=== PATIENT | male | born 1955 | race Caucasian/White ===

== ENCOUNTER 2020-11-19 13:37 | Inpatient (IN) | payer OTHER ==
[~2020-11-19] VITALS: Ht 190.5 cm; Wt 165.0 kg
[2020-11-19 15:51] LABS: COVID AG,FIA SOURCE NASOPHARYNGEAL
[2020-11-19 15:53] LABS: BASOPHILS % (AUTO) 0.6 % (0.0-2.0); EOSINOPHILS % (AUTO) 2.4 % (1.0-6.0); HEMATOCRIT 38.6 % (41-53); LYMPHOCYTES # (AUTO) 1.6 K/uL (1.0-4.8); LYMPHOCYTES % (AUTO) 19.4 % (22.0-44.0); MEAN CORPUSCULAR HEMOGLOBIN 29.9 pg (26.0-34.0); MEAN CORPUSCULAR HGB CONC 33.7 G/dL (31.0-37.0); MEAN CORPUSCULAR VOLUME 89 fL (80-100); MONOCYTES # (AUTO) 0.6 K/uL (0.1-1.0); MONOCYTES % (AUTO) 7.3 % (2.0-9.0); NEUTROPHILS # (AUTO) 5.9 K/uL (1.8-7.7); NEUTROPHILS % (AUTO) 70.3 % (40.0-70.0); PLATELET COUNT (AUTO) 191 K/uL (150-450); RED BLOOD CELL COUNT(AUTO) 4.36 MIL/uL (4.50-5.90); RED CELL DISTRIBUTION WIDTH 13.8 % (11.5-14.5)
[2020-11-19 16:02] LABS: ANION GAP 8 mmol/L (8-16); CALCIUM, TOTAL 8.9 mg/dL (8.8-10.5); CARBON DIOXIDE 29 mmol/L (22-29); CHLORIDE 106 mmol/L (98-107); CREATININE 0.96 mg/dL (0.60-1.30); GLOMERULAR FILTR. RATE CALC > 60 mL/min (>60); GLUCOSE,RANDOM 107 mg/dL (70-110); POTASSIUM 4.1 mmol/L (3.5-5.1); SODIUM SERUM 143 mmol/L (136-145); UREA NITROGEN, BLOOD 19 mg/dL (7-18)
[2020-11-19 16:07] LABS: ALANINE AMINOTRANSFERASE 30 U/L (12-78); ALBUMIN 4.1 g/dL (3.4-5.0); ALKALINE PHOSPHATASE 61 U/L (46-116); ASPARTATE AMINOTRANSFERASE 22 U/L (15-37); BILIRUBIN,TOTAL 0.4 mg/dL (0.1-1.0); TOTAL PROTEIN, SERUM 7.1 g/dL (6.4-8.2)
[2020-11-19] MEDS ORDERED: ONDANSETRON HCL 4 MG/2 ML VIAL IVP PRN ×2 (18:45→19:30)
[2020-11-19] MEDS ORDERED: ACETAMINOPHEN 325 MG TABLET PO PRN (18:45)
[2020-11-19 20:03] LABS: GLUCOSE,POINT OF CARE 93 MG/DL (70-110)
[2020-11-19 20:15] VITALS: BP 150/82
[2020-11-19] MEDS ORDERED: PNEUMOCOCCAL VACCINE POLYVALENT 0.5 ML VIAL [PPSV23] IM. ONE (21:15)
[2020-11-19] MEDS ORDERED: SODIUM CHLORIDE 0.9% 250 ML IV ONE (22:34)
[2020-11-19] MEDS: FUROSEMIDE 20 MG TABLET PO SCH (22:40)
[2020-11-19] MEDS: CeFAZolin 1 GM/DEXTROSE 50 ML IV SCH (22:50)
[2020-11-19] MEDS: HEPARIN SODIUM,PORCINE 5,000 UNITS/ML VIAL SQ SCH (22:51)
[2020-11-20 04:39] VITALS: BP 158/78
[2020-11-20] MEDS: CeFAZolin 1 GM/DEXTROSE 50 ML IV SCH ×2 (05:48→13:31)
[2020-11-20 06:33] LABS: GLUCOMETER DEV NAME(LOC) 6N.1; GLUCOSE,POINT OF CARE 91 MG/DL (70-110)
[2020-11-20] MEDS: HEPARIN SODIUM,PORCINE 5,000 UNITS/ML VIAL SQ SCH ×3 (08:00→23:30)
[2020-11-20] MEDS: FUROSEMIDE 20 MG TABLET PO SCH (08:00)
[2020-11-20 08:04] VITALS: BP 148/57
[2020-11-20 08:36] LABS: BASOPHILS % (AUTO) 1.1 % (0.0-2.0); EOSINOPHILS % (AUTO) 2.3 % (1.0-6.0); HEMATOCRIT 39.3 % (41-53); HEMOGLOBIN 13.4 g/dL (13.5-17.5); LYMPHOCYTES # (AUTO) 1.4 K/uL (1.0-4.8); LYMPHOCYTES % (AUTO) 23.6 % (22.0-44.0); MEAN CORPUSCULAR HEMOGLOBIN 30.1 pg (26.0-34.0); MEAN CORPUSCULAR HGB CONC 34.1 G/dL (31.0-37.0); MEAN CORPUSCULAR VOLUME 88 fL (80-100); MONOCYTES # (AUTO) 0.4 K/uL (0.1-1.0); MONOCYTES % (AUTO) 6.1 % (2.0-9.0); NEUTROPHILS # (AUTO) 4.1 K/uL (1.8-7.7); NEUTROPHILS % (AUTO) 66.9 % (40.0-70.0); PLATELET COUNT (AUTO) 167 K/uL (150-450); RED BLOOD CELL COUNT(AUTO) 4.46 MIL/uL (4.50-5.90); RED CELL DISTRIBUTION WIDTH 13.7 % (11.5-14.5)
[2020-11-20 08:52] LABS: ANION GAP 5 mmol/L (8-16); CALCIUM, TOTAL 8.9 mg/dL (8.8-10.5); CARBON DIOXIDE 29 mmol/L (22-29); CHLORIDE 107 mmol/L (98-107); CREATININE 0.89 mg/dL (0.60-1.30); GLOMERULAR FILTR. RATE CALC > 60 mL/min (>60); GLUCOSE,RANDOM 116 mg/dL (70-110); POTASSIUM 4.2 mmol/L (3.5-5.1); SODIUM SERUM 141 mmol/L (136-145); UREA NITROGEN, BLOOD 15 mg/dL (7-18)
[2020-11-20] MEDS: ACETAMINOPHEN 325 MG TABLET PO PRN ×2 (10:40→18:39)
[2020-11-20] MEDS ORDERED: THIAMINE 100 MG TABLET PO ONE (11:15)
[2020-11-20 12:35] LABS: GLUCOMETER DEV NAME(LOC) 6N.1; GLUCOSE,POINT OF CARE 89 MG/DL (70-110)
[2020-11-20] MEDS: CLINDAMYCIN 600 MG/D5% WATER 50 ML IV SCH ×2 (16:20→23:27)
[2020-11-20 19:50] VITALS: BP 146/78
[2020-11-20 22:59] LABS: GLUCOMETER DEV NAME(LOC) 6S.1; GLUCOSE,POINT OF CARE 132 MG/DL (70-110)
[2020-11-20 23:40] VITALS: BP 123/66
[2020-11-21] MEDS: ACETAMINOPHEN 325 MG TABLET PO PRN ×3 (00:44→13:48)
[2020-11-21 04:50] VITALS: BP 134/82
[2020-11-21 06:25] LABS: BASOPHILS % (AUTO) 0.7 % (0.0-2.0); EOSINOPHILS % (AUTO) 2.2 % (1.0-6.0); HEMATOCRIT 39.8 % (41-53); HEMOGLOBIN 13.5 g/dL (13.5-17.5); LYMPHOCYTES # (AUTO) 1.4 K/uL (1.0-4.8); LYMPHOCYTES % (AUTO) 21.4 % (22.0-44.0); MEAN CORPUSCULAR HEMOGLOBIN 29.9 pg (26.0-34.0); MEAN CORPUSCULAR HGB CONC 33.8 G/dL (31.0-37.0); MEAN CORPUSCULAR VOLUME 89 fL (80-100); MONOCYTES # (AUTO) 0.4 K/uL (0.1-1.0); MONOCYTES % (AUTO) 6.7 % (2.0-9.0); NEUTROPHILS # (AUTO) 4.5 K/uL (1.8-7.7); PLATELET COUNT (AUTO) 163 K/uL (150-450); RED BLOOD CELL COUNT(AUTO) 4.49 MIL/uL (4.50-5.90); RED CELL DISTRIBUTION WIDTH 13.9 % (11.5-14.5)
[2020-11-21 06:41] LABS: ALANINE AMINOTRANSFERASE 30 U/L (12-78); ALBUMIN 3.9 g/dL (3.4-5.0); ALKALINE PHOSPHATASE 60 U/L (46-116); ANION GAP 4 mmol/L (8-16); ASPARTATE AMINOTRANSFERASE 23 U/L (15-37); BILIRUBIN,TOTAL 0.5 mg/dL (0.1-1.0); CALCIUM, TOTAL 9.2 mg/dL (8.8-10.5); CARBON DIOXIDE 32 mmol/L (22-29); CHLORIDE 105 mmol/L (98-107); CREATININE 0.99 mg/dL (0.60-1.30); GLOMERULAR FILTR. RATE CALC > 60 mL/min (>60); GLUCOSE,RANDOM 96 mg/dL (70-110); POTASSIUM 4.8 mmol/L (3.5-5.1); SODIUM SERUM 141 mmol/L (136-145); TOTAL PROTEIN, SERUM 7.1 g/dL (6.4-8.2); UREA NITROGEN, BLOOD 15 mg/dL (7-18)
[2020-11-21 08:01] VITALS: BP 153/88
[2020-11-21] MEDS: CLINDAMYCIN 600 MG/D5% WATER 50 ML IV SCH (08:45)
[2020-11-21] MEDS: HEPARIN SODIUM,PORCINE 5,000 UNITS/ML VIAL SQ SCH ×3 (08:45→23:47)
[2020-11-21] MEDS: FUROSEMIDE 20 MG TABLET PO SCH (08:45)
[2020-11-21 12:43] LABS: GLUCOMETER DEV NAME(LOC) 6N.1; GLUCOSE,POINT OF CARE 105 MG/DL (70-110)
[2020-11-21 15:06] VITALS: BP 145/77
[2020-11-21] MEDS: CLINDAMYCIN 900 MG/D5% WATER 50 ML IV SCH ×2 (15:59→23:47)
[2020-11-21 20:17] VITALS: BP 139/87
[2020-11-21 23:03] LABS: GLUCOMETER DEV NAME(LOC) 6S.1; GLUCOSE,POINT OF CARE 139 MG/DL (70-110)
[2020-11-21 23:36] VITALS: BP 145/72
[2020-11-22 03:31] VITALS: BP 134/87
[2020-11-22 07:04] LABS: GLUCOMETER DEV NAME(LOC) 6N.1; GLUCOSE,POINT OF CARE 107 MG/DL (70-110)
[2020-11-22 07:58] VITALS: BP 134/82
[2020-11-22] MEDS: FUROSEMIDE 20 MG TABLET PO SCH (08:01)
[2020-11-22] MEDS: HEPARIN SODIUM,PORCINE 5,000 UNITS/ML VIAL SQ SCH ×3 (08:01→23:26)
[2020-11-22] MEDS: CLINDAMYCIN 900 MG/D5% WATER 50 ML IV SCH ×3 (08:02→23:26)
[2020-11-22] MEDS ORDERED: SODIUM CHLORIDE 0.9% 500 ML IV ONE (08:22)
[2020-11-22] MEDS: ACETAMINOPHEN 325 MG TABLET PO PRN ×3 (08:58→21:51)
[2020-11-22 19:53] VITALS: BP 128/71
[2020-11-23 04:40] VITALS: BP 118/75
[2020-11-23 06:56] LABS: ALANINE AMINOTRANSFERASE 51 U/L (12-78); ALBUMIN 4.2 g/dL (3.4-5.0); ALKALINE PHOSPHATASE 65 U/L (46-116); ANION GAP 7 mmol/L (8-16); ASPARTATE AMINOTRANSFERASE 40 U/L (15-37); BILIRUBIN,TOTAL 0.6 mg/dL (0.1-1.0); CALCIUM, TOTAL 9.2 mg/dL (8.8-10.5); CARBON DIOXIDE 27 mmol/L (22-29); CHLORIDE 103 mmol/L (98-107); CREATININE 0.74 mg/dL (0.60-1.30); GLOMERULAR FILTR. RATE CALC > 60 mL/min (>60); GLUCOSE,RANDOM 104 mg/dL (70-110); POTASSIUM 4.5 mmol/L (3.5-5.1); SODIUM SERUM 137 mmol/L (136-145); TOTAL PROTEIN, SERUM 7.6 g/dL (6.4-8.2); UREA NITROGEN, BLOOD 19 mg/dL (7-18)
[2020-11-23 06:58] LABS: BASOPHILS % (AUTO) 0.4 % (0.0-2.0); EOSINOPHILS % (AUTO) 1.7 % (1.0-6.0); HEMATOCRIT 44.2 % (41-53); HEMOGLOBIN 15.1 g/dL (13.5-17.5); LYMPHOCYTES # (AUTO) 1.5 K/uL (1.0-4.8); LYMPHOCYTES % (AUTO) 18.2 % (22.0-44.0); MEAN CORPUSCULAR HEMOGLOBIN 30.1 pg (26.0-34.0); MEAN CORPUSCULAR HGB CONC 34.1 G/dL (31.0-37.0); MEAN CORPUSCULAR VOLUME 88 fL (80-100); MONOCYTES # (AUTO) 0.7 K/uL (0.1-1.0); MONOCYTES % (AUTO) 8.2 % (2.0-9.0); NEUTROPHILS # (AUTO) 5.9 K/uL (1.8-7.7); NEUTROPHILS % (AUTO) 71.5 % (40.0-70.0); PLATELET COUNT (AUTO) 192 K/uL (150-450); RED BLOOD CELL COUNT(AUTO) 5.01 MIL/uL (4.50-5.90); RED CELL DISTRIBUTION WIDTH 14.1 % (11.5-14.5)
[2020-11-23 07:24] VITALS: BP 142/83
[2020-11-23] MEDS: CLINDAMYCIN 900 MG/D5% WATER 50 ML IV SCH ×3 (07:41→23:51)
[2020-11-23] MEDS: HEPARIN SODIUM,PORCINE 5,000 UNITS/ML VIAL SQ SCH ×3 (07:41→23:57)
[2020-11-23] MEDS: FUROSEMIDE 20 MG TABLET PO SCH (08:37)
[2020-11-23] MEDS: ACETAMINOPHEN 325 MG TABLET PO PRN ×3 (10:37→22:21)
[2020-11-23 11:45] VITALS: BP 110/68
[2020-11-23] MEDS ORDERED: SODIUM CHLORIDE 0.9% 250 ML IV ONE (16:19)
[2020-11-23 20:20] VITALS: BP 126/79
[2020-11-24] MEDS: ACETAMINOPHEN 325 MG TABLET PO PRN ×5 (02:14→23:16)
[2020-11-24 05:20] VITALS: BP 127/86
[2020-11-24] MEDS: HEPARIN SODIUM,PORCINE 5,000 UNITS/ML VIAL SQ SCH ×3 (07:16→23:11)
[2020-11-24] MEDS: CLINDAMYCIN 900 MG/D5% WATER 50 ML IV SCH ×3 (07:16→23:11)
[2020-11-24 07:29] VITALS: BP 135/88
[2020-11-24] MEDS: MULTIVITAMINS WITH MINERALS, THERAPEUTIC TABLET PO SCH (08:35)
[2020-11-24] MEDS: FUROSEMIDE 20 MG TABLET PO SCH (08:36)
[2020-11-24 19:38] VITALS: BP 103/80
[2020-11-25 04:49] VITALS: BP 116/67
[2020-11-25 06:02] LABS: BASOPHILS % (AUTO) 0.8 % (0.0-2.0); EOSINOPHILS % (AUTO) 1.6 % (1.0-6.0); HEMATOCRIT 44.3 % (41-53); HEMOGLOBIN 15.2 g/dL (13.5-17.5); LYMPHOCYTES # (AUTO) 1.5 K/uL (1.0-4.8); LYMPHOCYTES % (AUTO) 19.6 % (22.0-44.0); MEAN CORPUSCULAR HGB CONC 34.2 G/dL (31.0-37.0); MEAN CORPUSCULAR VOLUME 88 fL (80-100); MONOCYTES # (AUTO) 0.6 K/uL (0.1-1.0); MONOCYTES % (AUTO) 7.7 % (2.0-9.0); NEUTROPHILS # (AUTO) 5.3 K/uL (1.8-7.7); NEUTROPHILS % (AUTO) 70.3 % (40.0-70.0); PLATELET COUNT (AUTO) 200 K/uL (150-450); RED BLOOD CELL COUNT(AUTO) 5.05 MIL/uL (4.50-5.90); RED CELL DISTRIBUTION WIDTH 13.8 % (11.5-14.5)
[2020-11-25] MEDS: ACETAMINOPHEN 325 MG TABLET PO PRN ×3 (06:02→16:53)
[2020-11-25 06:32] LABS: ALANINE AMINOTRANSFERASE 65 U/L (12-78); ALBUMIN 3.9 g/dL (3.4-5.0); ALKALINE PHOSPHATASE 68 U/L (46-116); ANION GAP 5 mmol/L (8-16); ASPARTATE AMINOTRANSFERASE 42 U/L (15-37); BILIRUBIN,TOTAL 0.5 mg/dL (0.1-1.0); CARBON DIOXIDE 29 mmol/L (22-29); CHLORIDE 102 mmol/L (98-107); CREATININE 0.81 mg/dL (0.60-1.30); GLOMERULAR FILTR. RATE CALC > 60 mL/min (>60); GLUCOSE,RANDOM 104 mg/dL (70-110); POTASSIUM 4.4 mmol/L (3.5-5.1); SODIUM SERUM 136 mmol/L (136-145); TOTAL PROTEIN, SERUM 7.9 g/dL (6.4-8.2); UREA NITROGEN, BLOOD 21 mg/dL (7-18)
[2020-11-25 07:57] VITALS: BP 143/81
[2020-11-25] MEDS: MULTIVITAMINS WITH MINERALS, THERAPEUTIC TABLET PO SCH (08:52)
[2020-11-25] MEDS: CLINDAMYCIN 900 MG/D5% WATER 50 ML IV SCH ×2 (08:53→16:52)
[2020-11-25] MEDS: HEPARIN SODIUM,PORCINE 5,000 UNITS/ML VIAL SQ SCH ×2 (08:53→16:52)
[2020-11-25] MEDS: FUROSEMIDE 20 MG TABLET PO SCH (09:08)
[2020-11-25 16:00] VITALS: BP 121/68
== END 2020-11-25 19:09 | DRG 603 ==
LOC: EMS 13:37 → 6S 18:38
PROVIDERS: ADMIT Internal Medicine; ATTEND Internal Medicine
DX: L03.115 Cellulitis of right lower limb (principal); Z68.42 Body mass index [BMI] 45.0-49.9, adult; L03.116 Cellulitis of left lower limb; I87.2 Venous insufficiency (chronic) (peripheral); E11.9 Type 2 diabetes mellitus without complications; E66.01 Morbid (severe) obesity due to excess calories; M19.90 Unspecified osteoarthritis, unspecified site; I10 Essential (primary) hypertension; Z90.49 Acquired absence of other specified parts of digestive tract; Z88.8 Allergy status to other drugs, medicaments and biological substances; Z87.891 Personal history of nicotine dependence; Z79.899 Other long term (current) drug therapy; I87.8 Other specified disorders of veins; Z20.822 Contact with and (suspected) exposure to COVID-19
CPT/HCPCS: 71045; 80048; 80053; 82962; 83735; 83880; 85025; 85379; 93005; 93306; 93970; 99285; J0690; J1644; J3490; J7040; J7050; 36415-L1; 36415-TC

== ENCOUNTER 2021-01-26 23:40 | Inpatient (IN) | payer OTHER ==
[~2021-01-26] VITALS: Ht 190.5 cm; Wt 169.8 kg
[2021-01-27] MEDS ORDERED: LISI-892 PO (00:17)
[2021-01-27] MEDS ORDERED: ASPI81TA39 PO (00:17)
[2021-01-27] MEDS ORDERED: POTA-9 PO (00:17)
[2021-01-27] MEDS ORDERED: AMOX1TAB16 PO (00:17)
[2021-01-27] MEDS ORDERED: BUME0.5T5 PO (00:17)
[2021-01-27] MEDS ORDERED: OMEP20 PO (00:17)
[2021-01-27 00:47] LABS: BASOPHILS % (AUTO) 0.5 % (0.0-2.0); EOSINOPHILS % (AUTO) 1.1 % (1.0-6.0); HEMATOCRIT 42.7 % (41-53); HEMOGLOBIN 14.5 g/dL (13.5-17.5); LYMPHOCYTES # (AUTO) 1.3 K/uL (1.0-4.8); LYMPHOCYTES % (AUTO) 13.9 % (22.0-44.0); MEAN CORPUSCULAR HEMOGLOBIN 29.9 pg (26.0-34.0); MEAN CORPUSCULAR HGB CONC 33.9 G/dL (31.0-37.0); MEAN CORPUSCULAR VOLUME 88 fL (80-100); MONOCYTES # (AUTO) 0.7 K/uL (0.1-1.0); MONOCYTES % (AUTO) 7.8 % (2.0-9.0); NEUTROPHILS # (AUTO) 7.1 K/uL (1.8-7.7); NEUTROPHILS % (AUTO) 76.7 % (40.0-70.0); PLATELET COUNT (AUTO) 180 K/uL (150-450); RED BLOOD CELL COUNT(AUTO) 4.85 MIL/uL (4.50-5.90); RED CELL DISTRIBUTION WIDTH 13.6 % (11.5-14.5)
[2021-01-27] MEDS ORDERED: DILTIAZEM HCL 5 MG/ML 5 ML VIAL IVP ONE (01:00)
[2021-01-27] MEDS ORDERED: DILTIAZEM HCL 125 MG in DEXTROSE 5%-WATER 100 ML IV PRN (01:00)
[2021-01-27 01:01] LABS: ANION GAP 8 mmol/L (8-16); CARBON DIOXIDE 25 mmol/L (22-29); CHLORIDE 104 mmol/L (98-107); CREATININE 1.06 mg/dL (0.60-1.30); GLOMERULAR FILTR. RATE CALC > 60 mL/min (>60); GLUCOSE,RANDOM 134 mg/dL (70-110); POTASSIUM 4.3 mmol/L (3.5-5.1); SODIUM SERUM 137 mmol/L (136-145); UREA NITROGEN, BLOOD 20 mg/dL (7-18)
[2021-01-27 01:02] LABS: PROTHROMBIN TIME 10.9 SEC (9.4-11.6)
[2021-01-27 01:25] LABS: COVID AG,FIA SOURCE NASOPHARYNGEAL
[2021-01-27 01:25] LABS: ALANINE AMINOTRANSFERASE 64 U/L (12-78); ALKALINE PHOSPHATASE 67 U/L (46-116); ASPARTATE AMINOTRANSFERASE 30 U/L (15-37); BILIRUBIN,TOTAL 0.5 mg/dL (0.1-1.0); CREATINE KINASE, TOTAL ONLY 80 U/L (39-308); TOTAL PROTEIN, SERUM 7.7 g/dL (6.4-8.2)
[2021-01-27] MEDS ORDERED: ACETAMINOPHEN 500 MG TABLET PO ONE (01:45)
[2021-01-27] MEDS ORDERED: ACETAMINOPHEN 325 MG TABLET PO PRN (02:00)
[2021-01-27] MEDS ORDERED: ONDANSETRON HCL 4 MG/2 ML VIAL IVP PRN (02:00)
[2021-01-27] MEDS ORDERED: 0.9% SODIUM CHLORIDE 10 ML SYRINGE IVP PRN (02:00)
[2021-01-27] MEDS ORDERED: MIDAZOLAM HCL 2 MG/2 ML VIAL IVP ONE (03:00)
[2021-01-27] MEDS ORDERED: MIDAZOLAM HCL 5 MG/ML VIAL IVP ONE (03:00)
[2021-01-27] MEDS ORDERED: FentaNYL CITRATE PF 100 MCG/2 ML VIAL IVP ONE (03:00)
[2021-01-27] MEDS ORDERED: AMIODARONE HCL 360 MG in DEXTROSE 5%-WATER 242.8 ML IV ONE (04:00)
[2021-01-27] MEDS ORDERED: HEPARIN SODIUM,PORCINE 5,000 UNITS/ML VIAL IVP PRN ×2 (04:00)
[2021-01-27] MEDS ORDERED: HEPARIN SODIUM,PORCINE 5,000 UNITS/ML VIAL IVP ONE (04:00)
[2021-01-27] MEDS ORDERED: AMIODARONE HCL 150 MG in DEXTROSE 5%-WATER 97 ML IV ONE (04:00)
[2021-01-27] MEDS ORDERED: HEPARIN SODIUM 25000 UNITS/D5W 250 ML IV PRN (04:00)
[2021-01-27] MEDS ORDERED: AMIODARONE HCL 540 MG in DEXTROSE 5%-WATER 239.2 ML IV ONE (10:00)
[2021-01-27] MEDS ORDERED: MAGNESIUM HYDROXIDE SUSPENSION 30 ML UDCUP PO PRN (11:00)
[2021-01-27 15:24] LABS: APPEARANCE,URINE CLEAR (CLEAR); BILIRUBIN,URINE NEGATIVE (NEGATIVE); GLUCOSE, URINE (UA) NEGATIVE (NEGATIVE); KETONES,URINE NEGATIVE (NEGATIVE); LEUKOCYTE ESTERASE ,URINE NEGATIVE (NEGATIVE); NITRATE,URINE NEGATIVE (NEGATIVE); OCCULT BLOOD,URINE NEGATIVE (NEGATIVE); PROTEIN,URINE NEGATIVE (NEGATIVE); UROBILINOGEN,URINE 0.2 mg/dL (<=1.0)
[2021-01-27 18:04] VITALS: BP 133/83
[2021-01-27 19:33] VITALS: BP 110/66
[2021-01-27] MEDS: APIXABAN 5 MG TABLET PO SCH (21:08)
[2021-01-27] MEDS: ACETAMINOPHEN 325 MG TABLET PO PRN (21:16)
[2021-01-28] VITALS (7 sets, daily range): BP systolic 100–122; BP diastolic 55–70
[2021-01-28] MEDS ORDERED: AMIODARONE HCL 750 MG in DEXTROSE 5%-WATER 485 ML IV SCH ×2 (04:00)
[2021-01-28 06:33] LABS: BASOPHILS % (AUTO) 0.9 % (0.0-2.0); EOSINOPHILS % (AUTO) 1.3 % (1.0-6.0); HEMATOCRIT 41.7 % (41-53); HEMOGLOBIN 13.9 g/dL (13.5-17.5); LYMPHOCYTES # (AUTO) 1.5 K/uL (1.0-4.8); LYMPHOCYTES % (AUTO) 20.7 % (22.0-44.0); MEAN CORPUSCULAR HEMOGLOBIN 30.1 pg (26.0-34.0); MEAN CORPUSCULAR HGB CONC 33.3 G/dL (31.0-37.0); MEAN CORPUSCULAR VOLUME 90 fL (80-100); MONOCYTES # (AUTO) 0.4 K/uL (0.1-1.0); MONOCYTES % (AUTO) 6.1 % (2.0-9.0); NEUTROPHILS # (AUTO) 5.1 K/uL (1.8-7.7); PLATELET COUNT (AUTO) 178 K/uL (150-450); RED BLOOD CELL COUNT(AUTO) 4.61 MIL/uL (4.50-5.90); RED CELL DISTRIBUTION WIDTH 14.4 % (11.5-14.5)
[2021-01-28] MEDS: FAMOTIDINE 20 MG TABLET PO SCH (08:18)
[2021-01-28] MEDS: APIXABAN 5 MG TABLET PO SCH ×2 (08:18→21:57)
[2021-01-28] MEDS: ACETAMINOPHEN 325 MG TABLET PO PRN ×4 (08:19→22:07)
[2021-01-28] MEDS: AMIODARONE HCL 200 MG TABLET PO SCH (21:57)
[2021-01-29 05:37] VITALS: BP 110/62
[2021-01-29 08:05] VITALS: BP 106/62
[2021-01-29] MEDS: FAMOTIDINE 20 MG TABLET PO SCH (08:42)
[2021-01-29] MEDS: AMIODARONE HCL 200 MG TABLET PO SCH (08:42)
[2021-01-29] MEDS: APIXABAN 5 MG TABLET PO SCH (08:42)
[2021-01-29] MEDS ORDERED: AMIO200T68 PO (12:06)
[2021-01-29] MEDS ORDERED: APIX5TAB PO (12:06)
[2021-01-29] MEDS ORDERED: ACET-2247 PO (12:06)
[2021-01-29] MEDS ORDERED: MOM30 PO (12:07)
[2021-01-29] MEDS ORDERED: AMIODARONE HCL 200 MG TABLET PO SCH (21:00)
== END 2021-01-29 14:30 | DRG 309 ==
LOC: EMS 23:41 → 5S 01-27 10:46
PROVIDERS: ADMIT Internal Medicine; ATTEND Internal Medicine
DX: I48.0 Paroxysmal atrial fibrillation (principal); Z68.42 Body mass index [BMI] 45.0-49.9, adult; I10 Essential (primary) hypertension; Z20.822 Contact with and (suspected) exposure to COVID-19; E66.01 Morbid (severe) obesity due to excess calories; J44.9 Chronic obstructive pulmonary disease, unspecified; G47.33 Obstructive sleep apnea (adult) (pediatric); Z88.8 Allergy status to other drugs, medicaments and biological substances; Z88.6 Allergy status to analgesic agent; Z79.82 Long term (current) use of aspirin; Z79.899 Other long term (current) drug therapy
CPT/HCPCS: 71045; 80053; 81003; 82550; 83880; 84484; 85025; 85610; 85730; 93005; 99291; J0282; J1644; J2250; J3010; J3490; J7060; 36415-L1; 36415-TC

== ENCOUNTER 2021-02-04 14:28 | Inpatient (IN) | payer OTHER ==
[~2021-02-04] VITALS: Ht 190.5 cm; Wt 172.0 kg
[~2021-02-04 14:28] MED LIST: ACET-2247 PO; AMIO200T68 PO; APIX5TAB PO; MOM30 PO; OMEP20 PO
[2021-02-04 17:16] LABS: BASOPHILS % (AUTO) 0.6 % (0.0-2.0); EOSINOPHILS % (AUTO) 1.9 % (1.0-6.0); HEMATOCRIT 36.7 % (41-53); HEMOGLOBIN 12.5 g/dL (13.5-17.5); LYMPHOCYTES # (AUTO) 1.6 K/uL (1.0-4.8); LYMPHOCYTES % (AUTO) 20.4 % (22.0-44.0); MEAN CORPUSCULAR HEMOGLOBIN 29.8 pg (26.0-34.0); MEAN CORPUSCULAR HGB CONC 33.9 G/dL (31.0-37.0); MEAN CORPUSCULAR VOLUME 88 fL (80-100); MONOCYTES # (AUTO) 0.6 K/uL (0.1-1.0); MONOCYTES % (AUTO) 7.3 % (2.0-9.0); NEUTROPHILS # (AUTO) 5.4 K/uL (1.8-7.7); NEUTROPHILS % (AUTO) 69.8 % (40.0-70.0); PLATELET COUNT (AUTO) 173 K/uL (150-450); RED BLOOD CELL COUNT(AUTO) 4.19 MIL/uL (4.50-5.90)
[2021-02-04 17:20] LABS: COVID AG,FIA SOURCE NASOPHARYNGEAL
[2021-02-04 17:30] LABS: ANION GAP 11 mmol/L (8-16); CALCIUM, TOTAL 8.2 mg/dL (8.8-10.5); CARBON DIOXIDE 27 mmol/L (22-29); CHLORIDE 107 mmol/L (98-107); CREATININE 0.82 mg/dL (0.60-1.30); GLOMERULAR FILTR. RATE CALC > 60 mL/min (>60); GLUCOSE,RANDOM 91 mg/dL (70-110); POTASSIUM 3.7 mmol/L (3.5-5.1); SODIUM SERUM 145 mmol/L (136-145); UREA NITROGEN, BLOOD 14 mg/dL (7-18)
[2021-02-04] MEDS ORDERED: VANCOMYCIN HCL 1.5 GM in DEXTROSE 5%-WATER 250 ML IV ONE (17:30)
[2021-02-04 17:36] LABS: ALANINE AMINOTRANSFERASE 42 U/L (12-78); ALBUMIN 3.6 g/dL (3.4-5.0); ALKALINE PHOSPHATASE 60 U/L (46-116); ASPARTATE AMINOTRANSFERASE 20 U/L (15-37); BILIRUBIN,TOTAL 0.3 mg/dL (0.1-1.0); CREATINE KINASE, TOTAL ONLY 73 U/L (39-308); LIPASE 133 U/L (73-393); TOTAL PROTEIN, SERUM 6.9 g/dL (6.4-8.2)
[2021-02-04 17:59] LABS: B-TYPE NATRIURETIC PEPTIDE 55 pg/mL (0-100)
[2021-02-04] MEDS ORDERED: 0.9% SODIUM CHLORIDE 10 ML SYRINGE IVP PRN (18:15)
[2021-02-04] MEDS ORDERED: ACETAMINOPHEN 325 MG TABLET PO PRN (18:15)
[2021-02-04] MEDS ORDERED: ONDANSETRON HCL 4 MG/2 ML VIAL IVP PRN ×2 (18:15→21:30)
[2021-02-04 20:44] VITALS: BP 150/77
[2021-02-04] MEDS ORDERED: ZOLPIDEM TARTRATE 5 MG TABLET PO PRN (21:30)
[2021-02-04] MEDS ORDERED: BISACODYL 10 MG RECTAL RECTAL SUPPOSITORY PR PRN (21:30)
[2021-02-04] MEDS ORDERED: MAGNESIUM HYDROXIDE SUSPENSION 30 ML UDCUP PO PRN (21:30)
[2021-02-05] MEDS ORDERED: SODIUM CHLORIDE 0.9% 250 ML IV ONE (03:22)
[2021-02-05] MEDS: VANCOMYCIN HCL 1.5 GM in DEXTROSE 5%-WATER 250 ML IV SCH ×4 (03:34→23:27)
[2021-02-05 04:03] VITALS: BP 133/62
[2021-02-05 05:27] LABS: APPEARANCE,URINE CLEAR (CLEAR); BILIRUBIN,URINE NEGATIVE (NEGATIVE); GLUCOSE, URINE (UA) NEGATIVE (NEGATIVE); KETONES,URINE NEGATIVE (NEGATIVE); LEUKOCYTE ESTERASE ,URINE NEGATIVE (NEGATIVE); NITRATE,URINE NEGATIVE (NEGATIVE); OCCULT BLOOD,URINE NEGATIVE (NEGATIVE); PROTEIN,URINE NEGATIVE (NEGATIVE); UROBILINOGEN,URINE 0.2 mg/dL (<=1.0)
[2021-02-05 05:48] LABS: BACTERIA,URINE None Seen /HPF (None Seen); RBC,URINE None Seen /HPF (0-2); WBC,URINE None Seen /HPF (0-5)
[2021-02-05 07:28] LABS: ALANINE AMINOTRANSFERASE 39 U/L (12-78); ALBUMIN 3.4 g/dL (3.4-5.0); ALKALINE PHOSPHATASE 58 U/L (46-116); ANION GAP 3 mmol/L (8-16); ASPARTATE AMINOTRANSFERASE 21 U/L (15-37); BILIRUBIN,TOTAL 0.6 mg/dL (0.1-1.0); CALCIUM, TOTAL 8.6 mg/dL (8.8-10.5); CARBON DIOXIDE 33 mmol/L (22-29); CHLORIDE 109 mmol/L (98-107); CREATININE 0.81 mg/dL (0.60-1.30); GLOMERULAR FILTR. RATE CALC > 60 mL/min (>60); GLUCOSE,RANDOM 111 mg/dL (70-110); POTASSIUM 4.6 mmol/L (3.5-5.1); SODIUM SERUM 145 mmol/L (136-145); TOTAL PROTEIN, SERUM 6.8 g/dL (6.4-8.2); UREA NITROGEN, BLOOD 11 mg/dL (7-18)
[2021-02-05 08:31] VITALS: BP 103/69
[2021-02-05] MEDS: APIXABAN 5 MG TABLET PO SCH ×2 (08:55→20:39)
[2021-02-05] MEDS: AMIODARONE HCL 200 MG TABLET PO SCH ×2 (08:55→20:39)
[2021-02-05] MEDS: DOCUSATE SODIUM 100 MG CAPSULE PO SCH ×2 (08:55→20:39)
[2021-02-05] MEDS: PANTOPRAZOLE SODIUM 40 MG DR TABLET PO SCH (08:55)
[2021-02-05] MEDS: NYSTATIN 500,000 UNITS/5 ML SUSPENSION UDCUP PO SCH ×3 (12:00→23:27)
[2021-02-05] MEDS: BENZOCAINE 10% 7 GM GEL TP PRN ×3 (12:00→20:45)
[2021-02-05] MEDS: ACETAMINOPHEN 325 MG TABLET PO PRN (20:39)
[2021-02-05 20:40] VITALS: BP 140/83
[2021-02-06 04:45] VITALS: BP 138/81
[2021-02-06] MEDS: NYSTATIN 500,000 UNITS/5 ML SUSPENSION UDCUP PO SCH ×3 (05:58→18:06)
[2021-02-06] MEDS: VANCOMYCIN HCL 1.5 GM in DEXTROSE 5%-WATER 250 ML IV SCH ×2 (08:20→15:17)
[2021-02-06] MEDS: APIXABAN 5 MG TABLET PO SCH ×2 (08:20→22:11)
[2021-02-06] MEDS: PANTOPRAZOLE SODIUM 40 MG DR TABLET PO SCH (08:20)
[2021-02-06] MEDS: DOCUSATE SODIUM 100 MG CAPSULE PO SCH ×2 (08:20→22:10)
[2021-02-06] MEDS: AMIODARONE HCL 200 MG TABLET PO SCH ×2 (08:21→22:10)
[2021-02-06 08:25] VITALS: BP 135/77
[2021-02-06 08:29] LABS: ANION GAP 6 mmol/L (8-16); CALCIUM, TOTAL 8.8 mg/dL (8.8-10.5); CARBON DIOXIDE 31 mmol/L (22-29); CHLORIDE 107 mmol/L (98-107); CREATININE 0.82 mg/dL (0.60-1.30); GLOMERULAR FILTR. RATE CALC > 60 mL/min (>60); GLUCOSE,RANDOM 105 mg/dL (70-110); POTASSIUM 4.4 mmol/L (3.5-5.1); SODIUM SERUM 144 mmol/L (136-145); UREA NITROGEN, BLOOD 11 mg/dL (7-18); VANCOMYCIN,RANDOM 22.6 mcg/mL (25.0-50.0)
[2021-02-06] MEDS: ACETAMINOPHEN 325 MG TABLET PO PRN ×2 (11:28→18:10)
[2021-02-06] MEDS: BENZOCAINE 10% 7 GM GEL TP PRN ×2 (12:02→18:10)
[2021-02-06] MEDS ORDERED: VANCOMYCIN HCL 1.25 GM in DEXTROSE 5%-WATER 250 ML IV SCH (16:00)
[2021-02-06 21:10] VITALS: BP 131/77
[2021-02-07] MEDS: VANCOMYCIN HCL 1.5 GM in DEXTROSE 5%-WATER 250 ML IV SCH ×2 (00:02→07:47)
[2021-02-07] MEDS: NYSTATIN 500,000 UNITS/5 ML SUSPENSION UDCUP PO SCH ×2 (00:06→06:19)
[2021-02-07] MEDS: BENZOCAINE 10% 7 GM GEL TP PRN ×2 (00:10→06:22)
[2021-02-07 00:38] LABS: GLUCOMETER DEV NAME(LOC) 6S.1; GLUCOSE,POINT OF CARE 108 MG/DL (70-110)
[2021-02-07 04:30] VITALS: BP 133/76
[2021-02-07] MEDS ORDERED: LEVO-72 PO (07:36)
[2021-02-07 07:37] VITALS: BP 135/80
[2021-02-07] MEDS: AMIODARONE HCL 200 MG TABLET PO SCH (07:47)
[2021-02-07] MEDS: DOCUSATE SODIUM 100 MG CAPSULE PO SCH (07:47)
[2021-02-07] MEDS: PANTOPRAZOLE SODIUM 40 MG DR TABLET PO SCH (07:47)
[2021-02-07] MEDS: APIXABAN 5 MG TABLET PO SCH (07:48)
== END 2021-02-07 11:30 | DRG 603 ==
LOC: EMS 15:21 → 6S 18:39
PROVIDERS: ADMIT Internal Medicine; ATTEND Internal Medicine
DX: L03.115 Cellulitis of right lower limb (principal); I48.20 Chronic atrial fibrillation, unspecified; I50.32 Chronic diastolic (congestive) heart failure; D68.59 Other primary thrombophilia; Z68.42 Body mass index [BMI] 45.0-49.9, adult; L03.116 Cellulitis of left lower limb; E66.9 Obesity, unspecified; K21.9 Gastro-esophageal reflux disease without esophagitis; I10 Essential (primary) hypertension; Z20.822 Contact with and (suspected) exposure to COVID-19; Z79.01 Long term (current) use of anticoagulants
CPT/HCPCS: 71045; 80048; 80053; 80202; 81001; 82550; 82962; 83690; 83735; 83880; 84484; 85025; 87040; 93005; 93970; 99285; J3370; J7050; J7060; 36415-L1; 36415-TC

== ENCOUNTER 2021-11-25 13:25 | Inpatient (IN) | payer OTHER ==
[~2021-11-25] VITALS: Ht 185.4 cm; Wt 190.9 kg
[~2021-11-25 13:25] MED LIST changes: +LEVO-72 PO; +MAGN-169 PO; -MOM30 PO
[2021-11-25 14:59] LABS: COVID AG,FIA SOURCE NASAL SWAB
[2021-11-25 15:10] LABS: APPEARANCE,URINE CLEAR (CLEAR); BILIRUBIN,URINE NEGATIVE (NEGATIVE); GLUCOSE, URINE (UA) NEGATIVE (NEGATIVE); KETONES,URINE NEGATIVE (NEGATIVE); LEUKOCYTE ESTERASE ,URINE NEGATIVE (NEGATIVE); NITRATE,URINE NEGATIVE (NEGATIVE); OCCULT BLOOD,URINE NEGATIVE (NEGATIVE); PH,URINE 6.5 (5.0-8.0); PROTEIN,URINE NEGATIVE (NEGATIVE); SPECIFIC GRAVITIY, URINE 1.009 (1.003-1.030); UROBILINOGEN,URINE <=1.0 mg/dL (<=1.0)
[2021-11-25 15:35] LABS: EOSINOPHILS % (AUTO) 1.6 % (1.0-6.0); HEMOGLOBIN 12.9 g/dL (13.5-17.5); LYMPHOCYTES # (AUTO) 1.6 K/uL (1.0-4.8); LYMPHOCYTES % (AUTO) 22.3 % (22.0-44.0); MEAN CORPUSCULAR HEMOGLOBIN 28.8 pg (26.0-34.0); MEAN CORPUSCULAR HGB CONC 33.9 G/dL (31.0-37.0); MEAN CORPUSCULAR VOLUME 85 fL (80-100); MONOCYTES # (AUTO) 0.5 K/uL (0.1-1.0); MONOCYTES % (AUTO) 7.4 % (2.0-9.0); NEUTROPHILS # (AUTO) 4.7 K/uL (1.8-7.7); NEUTROPHILS % (AUTO) 67.7 % (40.0-70.0); PLATELET COUNT (AUTO) 178 K/uL (150-450); RED BLOOD CELL COUNT(AUTO) 4.48 MIL/uL (4.50-5.90); RED CELL DISTRIBUTION WIDTH 15.5 % (11.5-14.5)
[2021-11-25 15:44] LABS: ANION GAP 7 mmol/L (8-16); CALCIUM, TOTAL 8.7 mg/dL (8.8-10.5); CARBON DIOXIDE 28 mmol/L (22-29); CHLORIDE 103 mmol/L (98-107); CREATININE 1.07 mg/dL (0.60-1.30); GLOMERULAR FILTR. RATE CALC > 60 mL/min (>60); GLUCOSE,RANDOM 140 mg/dL (70-110); POTASSIUM 4.6 mmol/L (3.5-5.1); SODIUM SERUM 138 mmol/L (136-145); UREA NITROGEN, BLOOD 12 mg/dL (7-18)
[2021-11-25 15:50] LABS: ALANINE AMINOTRANSFERASE 35 U/L (12-78); ALBUMIN 3.8 g/dL (3.4-5.0); ALKALINE PHOSPHATASE 60 U/L (46-116); ASPARTATE AMINOTRANSFERASE 32 U/L (15-37); BILIRUBIN,TOTAL 0.5 mg/dL (0.1-1.0); TOTAL PROTEIN, SERUM 7.5 g/dL (6.4-8.2)
[2021-11-25 15:52] LABS: INR 1.1 (0.9-1.1); PROTHROMBIN TIME 11.2 SEC (9.4-11.6)
[2021-11-25 16:02] LABS: B-TYPE NATRIURETIC PEPTIDE 24 pg/mL (0-100)
[2021-11-25] MEDS ORDERED: MAGNESIUM HYDROXIDE SUSPENSION 30 ML UDCUP PO PRN (16:15)
[2021-11-25] MEDS ORDERED: ZOLPIDEM TARTRATE 5 MG TABLET PO PRN (16:15)
[2021-11-25] MEDS ORDERED: BUMETANIDE 0.25 MG/ML 4 ML VIAL IVP ONE (16:15)
[2021-11-25 21:02] VITALS: BP 121/60
[2021-11-25] MEDS: BUMETANIDE 0.25 MG/ML 4 ML VIAL IVP SCH (22:21)
[2021-11-25] MEDS: DOCUSATE SODIUM 100 MG CAPSULE PO SCH (22:21)
[2021-11-25] MEDS: APIXABAN 5 MG TABLET PO SCH (22:21)
[2021-11-25] MEDS: ACETAMINOPHEN 325 MG TABLET PO PRN (22:26)
[2021-11-26 00:05] VITALS: BP 124/77
[2021-11-26 04:11] VITALS: BP 140/78
[2021-11-26 07:58] VITALS: BP 116/63
[2021-11-26] MEDS: APIXABAN 5 MG TABLET PO SCH ×3 (09:00→21:43)
[2021-11-26] MEDS: FAMOTIDINE 20 MG TABLET PO SCH ×2 (09:00→11:49)
[2021-11-26] MEDS: DOCUSATE SODIUM 100 MG CAPSULE PO SCH ×2 (09:00→21:00)
[2021-11-26] MEDS: AMIODARONE HCL 200 MG TABLET PO SCH ×2 (09:00→11:49)
[2021-11-26] MEDS: BUMETANIDE 0.25 MG/ML 4 ML VIAL IVP SCH ×2 (09:00→21:43)
[2021-11-26] MEDS: GABAPENTIN 300 MG CAPSULE PO SCH ×2 (11:49→21:43)
[2021-11-26 11:54] LABS: BASOPHILS % (AUTO) 0.8 % (0.0-2.0); EOSINOPHILS % (AUTO) 1.6 % (1.0-6.0); LYMPHOCYTES # (AUTO) 1.4 K/uL (1.0-4.8); LYMPHOCYTES % (AUTO) 21.8 % (22.0-44.0); MEAN CORPUSCULAR HEMOGLOBIN 28.4 pg (26.0-34.0); MEAN CORPUSCULAR HGB CONC 33.2 G/dL (31.0-37.0); MEAN CORPUSCULAR VOLUME 85 fL (80-100); MONOCYTES # (AUTO) 0.5 K/uL (0.1-1.0); MONOCYTES % (AUTO) 7.4 % (2.0-9.0); NEUTROPHILS # (AUTO) 4.4 K/uL (1.8-7.7); NEUTROPHILS % (AUTO) 68.4 % (40.0-70.0); PLATELET COUNT (AUTO) 159 K/uL (150-450); RED BLOOD CELL COUNT(AUTO) 4.57 MIL/uL (4.50-5.90); RED CELL DISTRIBUTION WIDTH 15.6 % (11.5-14.5)
[2021-11-26 12:07] VITALS: BP 103/58
[2021-11-26 12:23] LABS: ANION GAP 9 mmol/L (8-16); CALCIUM, TOTAL 8.8 mg/dL (8.8-10.5); CARBON DIOXIDE 30 mmol/L (22-29); CHLORIDE 101 mmol/L (98-107); CREATININE 1.05 mg/dL (0.60-1.30); GLOMERULAR FILTR. RATE CALC > 60 mL/min (>60); GLUCOSE,RANDOM 102 mg/dL (70-110); POTASSIUM 3.7 mmol/L (3.5-5.1); SODIUM SERUM 140 mmol/L (136-145); THYROID STIMULATING HORMONE 4.46 uIU/mL (0.36-3.74); UREA NITROGEN, BLOOD 12 mg/dL (7-18)
[2021-11-26 15:23] VITALS: BP 112/62
[2021-11-26 20:09] VITALS: BP 121/70
[2021-11-26] MEDS: ACETAMINOPHEN 325 MG TABLET PO PRN (21:43)
[2021-11-27 00:53] VITALS: BP 118/70
[2021-11-27] MEDS: ACETAMINOPHEN 325 MG TABLET PO PRN (03:19)
[2021-11-27 06:09] VITALS: BP 110/66
[2021-11-27 08:11] VITALS: BP 128/76
[2021-11-27] MEDS: GABAPENTIN 300 MG CAPSULE PO SCH (08:31)
[2021-11-27] MEDS: BUMETANIDE 0.25 MG/ML 4 ML VIAL IVP SCH (08:31)
[2021-11-27] MEDS: FAMOTIDINE 20 MG TABLET PO SCH (08:31)
[2021-11-27] MEDS: AMIODARONE HCL 200 MG TABLET PO SCH (08:31)
[2021-11-27] MEDS: APIXABAN 5 MG TABLET PO SCH (08:31)
[2021-11-27] MEDS: DOCUSATE SODIUM 100 MG CAPSULE PO SCH (08:32)
[2021-11-27] MEDS ORDERED: BUMETANIDE 1 MG TABLET PO SCH (09:00)
[2021-11-27] MEDS ORDERED: LISINOPRIL 5 MG TABLET PO SCH (09:00)
[2021-11-27] MEDS ORDERED: DOCU-385 PO (10:28)
[2021-11-27] MEDS ORDERED: BUME1TAB34 PO (10:28)
[2021-11-27] MEDS ORDERED: FAMO20 PO (10:29)
[2021-11-27] MEDS ORDERED: LISI-892 PO (10:29)
[2021-11-27] MEDS ORDERED: GABA-1181 PO (10:29)
[2021-11-28 07:43] VITALS: BP 126/95
== END 2021-11-27 11:45 | DRG 291 ==
LOC: EMS 13:25 → 5N 18:44
PROVIDERS: ADMIT Internal Medicine; ATTEND Internal Medicine
DX: I11.0 Hypertensive heart disease with heart failure (principal); I50.33 Acute on chronic diastolic (congestive) heart failure; E44.0 Moderate protein-calorie malnutrition; Z68.43 Body mass index [BMI] 50.0-59.9, adult; I48.0 Paroxysmal atrial fibrillation; E03.9 Hypothyroidism, unspecified; E66.01 Morbid (severe) obesity due to excess calories; Z20.822 Contact with and (suspected) exposure to COVID-19; Z88.5 Allergy status to narcotic agent; Z88.8 Allergy status to other drugs, medicaments and biological substances
CPT/HCPCS: 71045; 80048; 80053; 81003; 83880; 84443; 84484; 85025; 85610; 85730; 93005; 93306; 93970; 99285; J3490; 36415-L1; 36415-TC

== ENCOUNTER 2022-01-13 15:50 | Inpatient (IN) | payer OTHER ==
[~2022-01-13] VITALS: Ht 193 cm; Wt 192.0 kg
[~2022-01-13 15:50] MED LIST changes: +BUME1TAB34 PO; +DOCU-385 PO; +FAMO20 PO; +GABA-1181 PO; -LEVO-72 PO; +LISI-892 PO
[2022-01-13 17:32] LABS: BASOPHILS % (AUTO) 0.8 % (0.0-2.0); EOSINOPHILS % (AUTO) 1.2 % (1.0-6.0); HEMATOCRIT 36.1 % (41-53); HEMOGLOBIN 12.1 g/dL (13.5-17.5); LYMPHOCYTES # (AUTO) 1.2 K/uL (1.0-4.8); LYMPHOCYTES % (AUTO) 15.4 % (22.0-44.0); MEAN CORPUSCULAR HEMOGLOBIN 28.7 pg (26.0-34.0); MEAN CORPUSCULAR HGB CONC 33.5 G/dL (31.0-37.0); MEAN CORPUSCULAR VOLUME 86 fL (80-100); MONOCYTES # (AUTO) 0.6 K/uL (0.1-1.0); MONOCYTES % (AUTO) 7.5 % (2.0-9.0); NEUTROPHILS # (AUTO) 5.7 K/uL (1.8-7.7); NEUTROPHILS % (AUTO) 75.1 % (40.0-70.0); PLATELET COUNT (AUTO) 172 K/uL (150-450); RED BLOOD CELL COUNT(AUTO) 4.22 MIL/uL (4.50-5.90); RED CELL DISTRIBUTION WIDTH 14.7 % (11.5-14.5)
[2022-01-13 17:41] LABS: ANION GAP 8 mmol/L (8-16); CALCIUM, TOTAL 8.7 mg/dL (8.8-10.5); CARBON DIOXIDE 30 mmol/L (22-29); CHLORIDE 102 mmol/L (98-107); CREATININE 1.18 mg/dL (0.60-1.30); GLUCOSE,RANDOM 140 mg/dL (70-110); POTASSIUM 3.8 mmol/L (3.5-5.1); SODIUM SERUM 140 mmol/L (136-145); UREA NITROGEN, BLOOD 17 mg/dL (7-18)
[2022-01-13 17:42] LABS: GLOMERULAR FILTR. RATE CALC > 60 mL/min (>60)
[2022-01-13 17:45] LABS: PROTHROMBIN TIME 10.9 SEC (9.4-11.6)
[2022-01-13 17:47] LABS: ALANINE AMINOTRANSFERASE 40 U/L (12-78); ALBUMIN 3.7 g/dL (3.4-5.0); ALKALINE PHOSPHATASE 66 U/L (46-116); ASPARTATE AMINOTRANSFERASE 25 U/L (15-37); BILIRUBIN,TOTAL 0.4 mg/dL (0.1-1.0); TOTAL PROTEIN, SERUM 7.3 g/dL (6.4-8.2)
[2022-01-13 17:55] LABS: B-TYPE NATRIURETIC PEPTIDE 14 pg/mL (0-100)
[2022-01-13] MEDS ORDERED: ONDANSETRON HCL 4 MG/2 ML VIAL IVP PRN (18:30)
[2022-01-13 18:54] LABS: COVID AG,FIA SOURCE NASAL SWAB
[2022-01-13 20:37] LABS: APPEARANCE,URINE CLEAR (CLEAR); BILIRUBIN,URINE NEGATIVE (NEGATIVE); GLUCOSE, URINE (UA) NEGATIVE (NEGATIVE); KETONES,URINE NEGATIVE (NEGATIVE); LEUKOCYTE ESTERASE ,URINE NEGATIVE (NEGATIVE); NITRATE,URINE NEGATIVE (NEGATIVE); OCCULT BLOOD,URINE NEGATIVE (NEGATIVE); PH,URINE 7.5 (5.0-8.0); PROTEIN,URINE NEGATIVE (NEGATIVE); SPECIFIC GRAVITIY, URINE 1.016 (1.003-1.030)
[2022-01-13 20:45] VITALS: BP 128/76
[2022-01-13 21:14] VITALS: BP 128/76
[2022-01-13] MEDS ORDERED: BARIUM SULFATE 0.1% SUSPENSION 450 ML BOTTLE ONE (21:28)
[2022-01-13] MEDS ORDERED: IOHEXOL 350 MG/ML 150 ML VIAL ONE (22:08)
[2022-01-13] MEDS ORDERED: SODIUM CHLORIDE 0.9% 100 ML ONE (22:08)
[2022-01-13] MEDS ORDERED: FUROSEMIDE 20 MG/2 ML VIAL IVP ONE (23:45)
[2022-01-13] MEDS ORDERED: FUROSEMIDE 20 MG/2 ML VIAL IVP SCH (23:45)
[2022-01-13] MEDS ORDERED: MAGNESIUM HYDROXIDE SUSPENSION 30 ML UDCUP PO PRN (23:45)
[2022-01-14] MEDS: ACETAMINOPHEN 500 MG TABLET PO PRN ×3 (00:27→15:38)
[2022-01-14 04:34] VITALS: BP 121/63
[2022-01-14 07:58] VITALS: BP 128/68
[2022-01-14] MEDS: DOCUSATE SODIUM 100 MG CAPSULE PO SCH ×3 (09:00→20:43)
[2022-01-14] MEDS: APIXABAN 5 MG TABLET PO SCH ×2 (09:00→20:42)
[2022-01-14] MEDS: GABAPENTIN 300 MG CAPSULE PO SCH ×2 (09:03→20:36)
[2022-01-14] MEDS: OMEPRAZOLE 20 MG CAPSULE PO SCH (09:04)
[2022-01-14] MEDS: BUMETANIDE 1 MG TABLET PO SCH ×2 (09:04→20:36)
[2022-01-14] MEDS: LISINOPRIL 5 MG TABLET PO SCH (09:04)
[2022-01-14] MEDS: AMIODARONE HCL 200 MG TABLET PO SCH ×2 (09:04→20:36)
[2022-01-14] MEDS: FAMOTIDINE 20 MG TABLET PO SCH (09:04)
[2022-01-14] MEDS: NYSTATIN 30 GM CREAM TP SCH (12:13)
[2022-01-14] MEDS: SILVER SULFADIAZINE 1% 25 GM CREAM TP SCH (12:13)
[2022-01-14 15:53] VITALS: BP 112/71
[2022-01-14] MEDS ORDERED: NYSTATIN 15 GM POWDER BOTTLE TP PRN (16:00)
[2022-01-14 19:55] VITALS: BP 102/66
[2022-01-15] MEDS: ACETAMINOPHEN 500 MG TABLET PO PRN (01:17)
[2022-01-15 04:05] VITALS: BP 123/68
[2022-01-15 07:30] VITALS: BP 177/94
[2022-01-15] MEDS: APIXABAN 5 MG TABLET PO SCH (07:40)
[2022-01-15] MEDS: OMEPRAZOLE 20 MG CAPSULE PO SCH (07:46)
[2022-01-15] MEDS: DOCUSATE SODIUM 100 MG CAPSULE PO SCH (07:46)
[2022-01-15] MEDS: LISINOPRIL 5 MG TABLET PO SCH (07:46)
[2022-01-15] MEDS: AMIODARONE HCL 200 MG TABLET PO SCH (07:46)
[2022-01-15] MEDS: SILVER SULFADIAZINE 1% 25 GM CREAM TP SCH (07:46)
[2022-01-15] MEDS: FAMOTIDINE 20 MG TABLET PO SCH (07:46)
[2022-01-15] MEDS: GABAPENTIN 300 MG CAPSULE PO SCH (07:46)
[2022-01-15] MEDS: NYSTATIN 30 GM CREAM TP SCH (07:46)
[2022-01-15] MEDS: BUMETANIDE 1 MG TABLET PO SCH (07:49)
[2022-01-15] MEDS ORDERED: MULTIVITAMINS WITH MINERALS, THERAPEUTIC TABLET PO SCH (09:45)
[2022-01-15 10:03] VITALS: BP 120/66
[2022-01-15] MEDS ORDERED: MULT-248 PO (14:03)
[2022-01-15] MEDS ORDERED: NYST15PO4 TP (14:04)
[2022-01-15] MEDS ORDERED: ACET-66 PO (14:04)
[2022-01-15] MEDS ORDERED: SILV20CR11 TP (14:05)
[2022-01-15] MEDS ORDERED: NYST30CR9 TP (14:05)
== END 2022-01-15 15:50 | DRG 603 ==
LOC: EMS 15:50 → 6S 20:23
PROVIDERS: ADMIT Internal Medicine; ATTEND Internal Medicine
DX: L03.115 Cellulitis of right lower limb (principal); E66.2 Morbid (severe) obesity with alveolar hypoventilation; I50.32 Chronic diastolic (congestive) heart failure; I48.20 Chronic atrial fibrillation, unspecified; Z68.43 Body mass index [BMI] 50.0-59.9, adult; K43.2 Incisional hernia without obstruction or gangrene; I11.0 Hypertensive heart disease with heart failure; I48.91 Unspecified atrial fibrillation; I89.0 Lymphedema, not elsewhere classified; K42.9 Umbilical hernia without obstruction or gangrene; Z20.822 Contact with and (suspected) exposure to COVID-19; S81.801A Unspecified open wound, right lower leg, initial encounter; X58.XXXA Exposure to other specified factors, initial encounter; I87.8 Other specified disorders of veins; Z88.5 Allergy status to narcotic agent; Z79.01 Long term (current) use of anticoagulants; Z88.8 Allergy status to other drugs, medicaments and biological substances; Z71.3 Dietary counseling and surveillance; Y93.89 Activity, other specified; Y92.89 Other specified places as the place of occurrence of the external cause; Y99.8 Other external cause status
CPT/HCPCS: 71045; 74177; 80053; 81003; 83880; 84484; 85025; 85610; 85730; 87081; 93005; 94660; 97161; 99285; J1940; J7050; Q9967; 36415-L1; 36415-TC

== ENCOUNTER 2022-04-02 07:09 | Inpatient (IN) | payer OTHER ==
[~2022-04-02] VITALS: Ht 190.5 cm; Wt 184.0 kg
[~2022-04-02 07:09] MED LIST changes: -ACET-2247 PO; +ACET-66 PO; +MULT-248 PO; +NYST15PO4 TP; +NYST30CR9 TP; -OMEP20 PO; +SILV20CR11 TP
[2022-04-02 08:21] LABS: COVID AG,FIA SOURCE NASOPHARYNGEAL
[2022-04-02 08:23] LABS: BASOPHILS % (AUTO) 0.8 % (0.0-2.0); EOSINOPHILS % (AUTO) 3.2 % (1.0-6.0); HEMATOCRIT 39.2 % (41-53); HEMOGLOBIN 12.8 g/dL (13.5-17.5); LYMPHOCYTES # (AUTO) 1.4 K/uL (1.0-4.8); LYMPHOCYTES % (AUTO) 23.6 % (22.0-44.0); MEAN CORPUSCULAR HEMOGLOBIN 28.5 pg (26.0-34.0); MEAN CORPUSCULAR HGB CONC 32.6 G/dL (31.0-37.0); MEAN CORPUSCULAR VOLUME 87 fL (80-100); MONOCYTES # (AUTO) 0.7 K/uL (0.1-1.0); MONOCYTES % (AUTO) 11.5 % (2.0-9.0); NEUTROPHILS # (AUTO) 3.7 K/uL (1.8-7.7); NEUTROPHILS % (AUTO) 60.9 % (40.0-70.0); PLATELET COUNT (AUTO) 164 K/uL (150-450); RED BLOOD CELL COUNT(AUTO) 4.49 MIL/uL (4.50-5.90); RED CELL DISTRIBUTION WIDTH 14.2 % (11.5-14.5)
[2022-04-02 08:32] LABS: ANION GAP 7 mmol/L (8-16); CALCIUM, TOTAL 8.9 mg/dL (8.8-10.5); CARBON DIOXIDE 29 mmol/L (22-29); CHLORIDE 103 mmol/L (98-107); GLUCOSE,RANDOM 106 mg/dL (70-110); POTASSIUM 3.9 mmol/L (3.5-5.1); SODIUM SERUM 139 mmol/L (136-145); UREA NITROGEN, BLOOD 14 mg/dL (7-18)
[2022-04-02 08:36] LABS: GLOMERULAR FILTR. RATE CALC > 60 mL/min (>60)
[2022-04-02 08:40] LABS: ALANINE AMINOTRANSFERASE 32 U/L (12-78); ALBUMIN 3.6 g/dL (3.4-5.0); ALKALINE PHOSPHATASE 60 U/L (46-116); ASPARTATE AMINOTRANSFERASE 24 U/L (15-37); BILIRUBIN,TOTAL 0.3 mg/dL (0.1-1.0); TOTAL PROTEIN, SERUM 7.2 g/dL (6.4-8.2)
[2022-04-02 08:46] LABS: B-TYPE NATRIURETIC PEPTIDE 28 pg/mL (0-100)
[2022-04-02 09:03] LABS: INFLUENZA TYPE A NEGATIVE FOR TYPE A (NEGATIVE); INFLUENZA TYPE B NEGATIVE FOR TYPE B (NEGATIVE)
[2022-04-02] MEDS ORDERED: CefTRIAXone 1 GM/DEXTROSE 50 ML IV ONE (09:15)
[2022-04-02] MEDS ORDERED: AZITHROMYCIN 500 MG/NS 250 ML IV ONE (09:15)
[2022-04-02] MEDS ORDERED: ACETAMINOPHEN 325 MG TABLET PO PRN (09:15)
[2022-04-02] MEDS ORDERED: 0.9% SODIUM CHLORIDE 10 ML SYRINGE IVP PRN (09:15)
[2022-04-02] MEDS ORDERED: LEVO75 PO (11:02)
[2022-04-02] MEDS ORDERED: POTA-92 PO (11:02)
[2022-04-02] MEDS ORDERED: ASPI-1450 PO (11:02)
[2022-04-02] MEDS ORDERED: BUME1TAB34 PO (11:02)
[2022-04-02 12:48] LABS: APPEARANCE,URINE CLEAR (CLEAR); BILIRUBIN,URINE NEGATIVE (NEGATIVE); GLUCOSE, URINE (UA) NEGATIVE (NEGATIVE); KETONES,URINE NEGATIVE (NEGATIVE); LEUKOCYTE ESTERASE ,URINE NEGATIVE (NEGATIVE); NITRATE,URINE NEGATIVE (NEGATIVE); OCCULT BLOOD,URINE NEGATIVE (NEGATIVE); PROTEIN,URINE NEGATIVE (NEGATIVE); SPECIFIC GRAVITIY, URINE 1.012 (1.003-1.030); UROBILINOGEN,URINE <=1.0 mg/dL (<=1.0)
[2022-04-02] MEDS ORDERED: MAGNESIUM HYDROXIDE SUSPENSION 30 ML UDCUP PO PRN (14:30)
[2022-04-02] MEDS ORDERED: ALBUTEROL SULFATE 2.5 MG/0.5 ML NEB SOLUTION NEB PRN (14:30)
[2022-04-02] MEDS ORDERED: ZOLPIDEM TARTRATE 5 MG TABLET PO PRN (14:30)
[2022-04-02] MEDS ORDERED: ONDANSETRON HCL 4 MG/2 ML VIAL IVP PRN (14:30)
[2022-04-02] MEDS ORDERED: IPRATROPIUM BROMIDE 0.5 MG/2.5 ML NEB SOLUTION NEB PRN (14:30)
[2022-04-02] MEDS ORDERED: BISACODYL 10 MG RECTAL RECTAL SUPPOSITORY PR PRN (14:30)
[2022-04-02] MEDS ORDERED: HEPARIN SODIUM,PORCINE 5,000 UNITS/ML VIAL SQ SCH (16:00)
[2022-04-02] MEDS: APIXABAN 5 MG TABLET PO SCH ×2 (21:00→22:29)
[2022-04-02] MEDS: AMIODARONE HCL 200 MG TABLET PO SCH ×2 (21:00→22:28)
[2022-04-02] MEDS: GABAPENTIN 300 MG CAPSULE PO SCH ×2 (21:00→22:28)
[2022-04-02 22:17] VITALS: BP 143/91
[2022-04-02] MEDS: ACETAMINOPHEN 325 MG TABLET PO PRN (22:52)
[2022-04-02] MEDS: BUMETANIDE 0.25 MG/ML 4 ML VIAL IVP SCH (23:37)
[2022-04-03 03:35] VITALS: BP 132/90
[2022-04-03 09:43] VITALS: BP 125/69
[2022-04-03] MEDS: LISINOPRIL 5 MG TABLET PO SCH (09:48)
[2022-04-03] MEDS: POTASSIUM CHLORIDE 10 MEQ ER TABLET PO SCH (09:48)
[2022-04-03] MEDS: BUMETANIDE 0.25 MG/ML 4 ML VIAL IVP SCH ×2 (09:48→20:51)
[2022-04-03] MEDS: PANTOPRAZOLE SODIUM 40 MG DR TABLET PO SCH (09:48)
[2022-04-03] MEDS: GABAPENTIN 300 MG CAPSULE PO SCH ×2 (09:48→20:52)
[2022-04-03] MEDS: LEVOTHYROXINE SODIUM 75 MCG TABLET PO SCH (09:49)
[2022-04-03] MEDS: AMIODARONE HCL 200 MG TABLET PO SCH ×2 (09:49→20:52)
[2022-04-03] MEDS: ASPIRIN 81 MG CHEWABLE TABLET PO SCH (09:49)
[2022-04-03] MEDS: APIXABAN 5 MG TABLET PO SCH ×2 (09:49→20:52)
[2022-04-03 12:57] VITALS: BP 135/70
[2022-04-03 16:27] VITALS: BP 116/76
[2022-04-03 20:05] VITALS: BP 141/69
[2022-04-04 04:43] VITALS: BP 123/69
[2022-04-04 07:28] VITALS: BP 134/70
[2022-04-04 07:34] VITALS: BP 151/77
[2022-04-04] MEDS: POTASSIUM CHLORIDE 10 MEQ ER TABLET PO SCH (09:13)
[2022-04-04] MEDS: ASPIRIN 81 MG CHEWABLE TABLET PO SCH (09:13)
[2022-04-04] MEDS: AMIODARONE HCL 200 MG TABLET PO SCH ×2 (09:13→20:27)
[2022-04-04] MEDS: BUMETANIDE 0.25 MG/ML 4 ML VIAL IVP SCH (09:13)
[2022-04-04] MEDS: GABAPENTIN 300 MG CAPSULE PO SCH ×2 (09:13→20:28)
[2022-04-04] MEDS: PANTOPRAZOLE SODIUM 40 MG DR TABLET PO SCH (09:13)
[2022-04-04] MEDS: LEVOTHYROXINE SODIUM 75 MCG TABLET PO SCH (09:14)
[2022-04-04] MEDS: APIXABAN 5 MG TABLET PO SCH ×2 (09:14→20:27)
[2022-04-04] MEDS: LISINOPRIL 5 MG TABLET PO SCH (09:14)
[2022-04-04 11:39] VITALS: BP 168/74
[2022-04-04] MEDS: ACETAMINOPHEN 325 MG TABLET PO PRN (11:43)
[2022-04-04 15:23] LABS: BASOPHILS % (AUTO) 0.3 % (0.0-2.0); EOSINOPHILS % (AUTO) 1.8 % (1.0-6.0); HEMOGLOBIN 13.1 g/dL (13.5-17.5); LYMPHOCYTES # (AUTO) 1.9 K/uL (1.0-4.8); LYMPHOCYTES % (AUTO) 20.4 % (22.0-44.0); MEAN CORPUSCULAR HEMOGLOBIN 28.8 pg (26.0-34.0); MEAN CORPUSCULAR HGB CONC 32.9 G/dL (31.0-37.0); MEAN CORPUSCULAR VOLUME 88 fL (80-100); MONOCYTES # (AUTO) 0.7 K/uL (0.1-1.0); MONOCYTES % (AUTO) 7.6 % (2.0-9.0); NEUTROPHILS # (AUTO) 6.4 K/uL (1.8-7.7); NEUTROPHILS % (AUTO) 69.9 % (40.0-70.0); PLATELET COUNT (AUTO) 219 K/uL (150-450); RED BLOOD CELL COUNT(AUTO) 4.56 MIL/uL (4.50-5.90); RED CELL DISTRIBUTION WIDTH 14.9 % (11.5-14.5)
[2022-04-04 15:29] LABS: CALCIUM, TOTAL 9.1 mg/dL (8.8-10.5); CREATININE 1.42 mg/dL (0.60-1.30); POTASSIUM 4.8 mmol/L (3.5-5.1)
[2022-04-04 15:32] LABS: ALBUMIN 3.9 g/dL (3.4-5.0); BILIRUBIN,TOTAL 0.5 mg/dL (0.1-1.0); TOTAL PROTEIN, SERUM 7.7 g/dL (6.4-8.2)
[2022-04-04 15:46] VITALS: BP 123/71
[2022-04-04 20:01] VITALS: BP 16/73
[2022-04-04] MEDS ORDERED: BUMETANIDE 0.25 MG/ML 10 ML VIAL IVP SCH (21:00)
[2022-04-05 00:30] VITALS: BP 120/76
[2022-04-05 03:20] VITALS: BP 111/72
[2022-04-05 07:47] VITALS: BP 133/95
[2022-04-05] MEDS: POTASSIUM CHLORIDE 10 MEQ ER TABLET PO SCH (08:41)
[2022-04-05] MEDS: ASPIRIN 81 MG CHEWABLE TABLET PO SCH (08:41)
[2022-04-05] MEDS: GABAPENTIN 300 MG CAPSULE PO SCH (08:41)
[2022-04-05] MEDS: LEVOTHYROXINE SODIUM 75 MCG TABLET PO SCH (08:41)
[2022-04-05] MEDS: APIXABAN 5 MG TABLET PO SCH (08:41)
[2022-04-05] MEDS: PANTOPRAZOLE SODIUM 40 MG DR TABLET PO SCH (08:42)
[2022-04-05] MEDS: AMIODARONE HCL 200 MG TABLET PO SCH (08:42)
[2022-04-05] MEDS: LISINOPRIL 5 MG TABLET PO SCH (08:42)
[2022-04-05] MEDS: ACETAMINOPHEN 325 MG TABLET PO PRN (08:42)
[2022-04-05] MEDS ORDERED: BUMETANIDE 1 MG TABLET PO SCH (09:00)
[2022-04-05 11:27] VITALS: BP 117/72
[2022-04-05 16:38] LABS: BASOPHILS % (AUTO) 1.3 % (0.0-2.0); EOSINOPHILS % (AUTO) 1.6 % (1.0-6.0); HEMATOCRIT 41.5 % (41-53); HEMOGLOBIN 13.6 g/dL (13.5-17.5); LYMPHOCYTES # (AUTO) 1.8 K/uL (1.0-4.8); LYMPHOCYTES % (AUTO) 19.3 % (22.0-44.0); MEAN CORPUSCULAR HEMOGLOBIN 28.7 pg (26.0-34.0); MEAN CORPUSCULAR HGB CONC 32.6 G/dL (31.0-37.0); MEAN CORPUSCULAR VOLUME 88 fL (80-100); MONOCYTES # (AUTO) 0.7 K/uL (0.1-1.0); MONOCYTES % (AUTO) 7.1 % (2.0-9.0); NEUTROPHILS # (AUTO) 6.6 K/uL (1.8-7.7); NEUTROPHILS % (AUTO) 70.7 % (40.0-70.0); PLATELET COUNT (AUTO) 211 K/uL (150-450); RED BLOOD CELL COUNT(AUTO) 4.72 MIL/uL (4.50-5.90); RED CELL DISTRIBUTION WIDTH 14.9 % (11.5-14.5)
[2022-04-05 16:46] LABS: ANION GAP 9 mmol/L (8-16); CALCIUM, TOTAL 9.5 mg/dL (8.8-10.5); CARBON DIOXIDE 33 mmol/L (22-29); CHLORIDE 99 mmol/L (98-107); CREATININE 1.19 mg/dL (0.60-1.30); GLOMERULAR FILTR. RATE CALC > 60 mL/min (>60); GLUCOSE,RANDOM 92 mg/dL (70-110); POTASSIUM 5.3 mmol/L (3.5-5.1); SODIUM SERUM 141 mmol/L (136-145); UREA NITROGEN, BLOOD 23 mg/dL (7-18)
[2022-04-05 16:51] LABS: ALANINE AMINOTRANSFERASE 36 U/L (12-78); ALKALINE PHOSPHATASE 66 U/L (46-116); ASPARTATE AMINOTRANSFERASE 23 U/L (15-37); BILIRUBIN,TOTAL 0.5 mg/dL (0.1-1.0)
[2022-04-05 17:25] VITALS: BP 122/88
[2022-04-05 20:35] VITALS: BP 128/66
== END 2022-04-05 21:25 | DRG 291 ==
LOC: EMS 07:15 → 5S 19:49
PROVIDERS: ADMIT Hospitalist; ATTEND Hospitalist
DX: I11.0 Hypertensive heart disease with heart failure (principal); I50.23 Acute on chronic systolic (congestive) heart failure; J18.9 Pneumonia, unspecified organism; Z68.43 Body mass index [BMI] 50.0-59.9, adult; E66.01 Morbid (severe) obesity due to excess calories; I48.91 Unspecified atrial fibrillation; E03.9 Hypothyroidism, unspecified; Z20.822 Contact with and (suspected) exposure to COVID-19; Z88.5 Allergy status to narcotic agent; Z79.01 Long term (current) use of anticoagulants
CPT/HCPCS: 71045; 80053; 81003; 83880; 84484; 85025; 87040; 87081; 87804; 93005; 94640; 99285; J0456; J0696; J1644; J2405; J3490; 36415-L1; 36415-TC; J7613

== ENCOUNTER 2022-04-10 08:01 | Inpatient (IN) | payer OTHER ==
[~2022-04-10] VITALS: Ht 188 cm; Wt 187.5 kg
[~2022-04-10 08:01] MED LIST changes: +ASPI-1450 PO; -DOCU-385 PO; -FAMO20 PO; +LEVO75 PO; -MAGN-169 PO; -MULT-248 PO; -NYST15PO4 TP; -NYST30CR9 TP; +POTA-92 PO; -SILV20CR11 TP
[2022-04-10] MEDS ORDERED: OMEP20 PO (10:21)
[2022-04-10] MEDS ORDERED: BUME1TAB34 PO ×2 (10:21)
[2022-04-10 11:23] LABS: BASOPHILS % (AUTO) 0.7 % (0.0-2.0); EOSINOPHILS % (AUTO) 1.5 % (1.0-6.0); HEMATOCRIT 37.8 % (41-53); HEMOGLOBIN 12.5 g/dL (13.5-17.5); LYMPHOCYTES # (AUTO) 1.5 K/uL (1.0-4.8); LYMPHOCYTES % (AUTO) 22.3 % (22.0-44.0); MEAN CORPUSCULAR HEMOGLOBIN 28.9 pg (26.0-34.0); MEAN CORPUSCULAR HGB CONC 33.2 G/dL (31.0-37.0); MEAN CORPUSCULAR VOLUME 87 fL (80-100); MONOCYTES # (AUTO) 0.5 K/uL (0.1-1.0); MONOCYTES % (AUTO) 7.8 % (2.0-9.0); NEUTROPHILS # (AUTO) 4.4 K/uL (1.8-7.7); NEUTROPHILS % (AUTO) 67.7 % (40.0-70.0); PLATELET COUNT (AUTO) 180 K/uL (150-450); RED BLOOD CELL COUNT(AUTO) 4.34 MIL/uL (4.50-5.90)
[2022-04-10 11:34] LABS: B-TYPE NATRIURETIC PEPTIDE 48 pg/mL (0-100)
[2022-04-10 11:40] LABS: ANION GAP 6 mmol/L (8-16); CALCIUM, TOTAL 8.9 mg/dL (8.8-10.5); CARBON DIOXIDE 29 mmol/L (22-29); CHLORIDE 105 mmol/L (98-107); GLUCOSE,RANDOM 104 mg/dL (70-110); POTASSIUM 3.7 mmol/L (3.5-5.1); SODIUM SERUM 140 mmol/L (136-145); UREA NITROGEN, BLOOD 15 mg/dL (7-18)
[2022-04-10 11:41] LABS: GLOMERULAR FILTR. RATE CALC > 60 mL/min (>60)
[2022-04-10] MEDS ORDERED: BISACODYL 10 MG RECTAL RECTAL SUPPOSITORY PR PRN (12:00)
[2022-04-10] MEDS ORDERED: MAGNESIUM HYDROXIDE SUSPENSION 30 ML UDCUP PO PRN (12:00)
[2022-04-10] MEDS ORDERED: ONDANSETRON HCL 4 MG/2 ML VIAL IVP PRN (12:00)
[2022-04-10] MEDS ORDERED: ZOLPIDEM TARTRATE 5 MG TABLET PO PRN (12:00)
[2022-04-10 12:06] LABS: ALANINE AMINOTRANSFERASE 28 U/L (12-78); ALBUMIN 3.6 g/dL (3.4-5.0); ALKALINE PHOSPHATASE 61 U/L (46-116); ASPARTATE AMINOTRANSFERASE 23 U/L (15-37); BILIRUBIN,TOTAL 0.3 mg/dL (0.1-1.0); CREATINE KINASE, TOTAL ONLY 215 U/L (39-308); TOTAL PROTEIN, SERUM 7.4 g/dL (6.4-8.2)
[2022-04-10 12:31] LABS: COVID AG,FIA SOURCE NASAL SWAB
[2022-04-10] MEDS ORDERED: CLINDAMYCIN 900 MG/D5% WATER 50 ML IV ONE (13:30)
[2022-04-10] MEDS: GABAPENTIN 300 MG CAPSULE PO SCH ×2 (16:00→22:13)
[2022-04-10] MEDS: BUMETANIDE 0.25 MG/ML 4 ML VIAL IVP SCH (16:00)
[2022-04-10 16:32] LABS: APPEARANCE,URINE CLEAR (CLEAR); BILIRUBIN,URINE NEGATIVE (NEGATIVE); GLUCOSE, URINE (UA) NEGATIVE (NEGATIVE); KETONES,URINE NEGATIVE (NEGATIVE); LEUKOCYTE ESTERASE ,URINE NEGATIVE (NEGATIVE); NITRATE,URINE NEGATIVE (NEGATIVE); OCCULT BLOOD,URINE NEGATIVE (NEGATIVE); PH,URINE 6.5 (5.0-8.0); PROTEIN,URINE NEGATIVE (NEGATIVE); SPECIFIC GRAVITIY, URINE 1.016 (1.003-1.030); UROBILINOGEN,URINE <=1.0 mg/dL (<=1.0)
[2022-04-10] MEDS: ACETAMINOPHEN 325 MG TABLET PO PRN (19:37)
[2022-04-10] MEDS: AMIODARONE HCL 200 MG TABLET PO SCH (22:13)
[2022-04-10] MEDS: APIXABAN 5 MG TABLET PO SCH (22:13)
[2022-04-10] MEDS: DOCUSATE SODIUM 100 MG CAPSULE PO SCH (22:13)
[2022-04-11 07:17] LABS: BASOPHILS % (AUTO) 0.3 % (0.0-2.0); EOSINOPHILS % (AUTO) 2.1 % (1.0-6.0); HEMATOCRIT 36.8 % (41-53); HEMOGLOBIN 12.3 g/dL (13.5-17.5); LYMPHOCYTES # (AUTO) 1.5 K/uL (1.0-4.8); LYMPHOCYTES % (AUTO) 24.8 % (22.0-44.0); MEAN CORPUSCULAR HEMOGLOBIN 29.1 pg (26.0-34.0); MEAN CORPUSCULAR HGB CONC 33.3 G/dL (31.0-37.0); MEAN CORPUSCULAR VOLUME 87 fL (80-100); MONOCYTES # (AUTO) 0.4 K/uL (0.1-1.0); MONOCYTES % (AUTO) 6.8 % (2.0-9.0); NEUTROPHILS # (AUTO) 3.9 K/uL (1.8-7.7); PLATELET COUNT (AUTO) 177 K/uL (150-450); RED BLOOD CELL COUNT(AUTO) 4.22 MIL/uL (4.50-5.90); RED CELL DISTRIBUTION WIDTH 14.8 % (11.5-14.5)
[2022-04-11 07:36] LABS: ANION GAP 5 mmol/L (8-16); CALCIUM, TOTAL 8.8 mg/dL (8.8-10.5); CARBON DIOXIDE 29 mmol/L (22-29); CHLORIDE 104 mmol/L (98-107); CREATININE 0.96 mg/dL (0.60-1.30); GLUCOSE,RANDOM 104 mg/dL (70-110); SODIUM SERUM 138 mmol/L (136-145); UREA NITROGEN, BLOOD 12 mg/dL (7-18)
[2022-04-11 07:45] LABS: GLOMERULAR FILTR. RATE CALC > 60 mL/min (>60)
[2022-04-11 08:44] VITALS: BP 110/47
[2022-04-11] MEDS: PANTOPRAZOLE SODIUM 40 MG DR TABLET PO SCH (10:10)
[2022-04-11] MEDS: POTASSIUM CHLORIDE 10 MEQ ER TABLET PO SCH (10:10)
[2022-04-11] MEDS: AMIODARONE HCL 200 MG TABLET PO SCH ×2 (10:10→21:11)
[2022-04-11] MEDS: LISINOPRIL 5 MG TABLET PO SCH (10:10)
[2022-04-11] MEDS: BUMETANIDE 0.25 MG/ML 10 ML VIAL IVP SCH ×2 (10:11→15:29)
[2022-04-11] MEDS: APIXABAN 5 MG TABLET PO SCH ×2 (10:11→21:11)
[2022-04-11] MEDS: GABAPENTIN 300 MG CAPSULE PO SCH ×3 (10:11→21:11)
[2022-04-11] MEDS: DOCUSATE SODIUM 100 MG CAPSULE PO SCH ×2 (10:11→21:11)
[2022-04-11] MEDS: LEVOTHYROXINE SODIUM 75 MCG TABLET PO SCH (12:13)
[2022-04-11 12:20] VITALS: BP 120/66
[2022-04-11 15:36] VITALS: BP 124/65
[2022-04-11 20:03] VITALS: BP 132/68
[2022-04-11] MEDS: ACETAMINOPHEN 325 MG TABLET PO PRN (21:17)
[2022-04-11] MEDS: BUMETANIDE 0.25 MG/ML 4 ML VIAL IVP SCH ×2 (23:38)
[2022-04-12] MEDS ORDERED: BUMETANIDE 0.25 MG/ML 10 ML VIAL IVP SCH
[2022-04-12 00:38] VITALS: BP 131/79
[2022-04-12] MEDS: LEVOTHYROXINE SODIUM 75 MCG TABLET PO SCH (06:02)
[2022-04-12 06:08] VITALS: BP 144/50
[2022-04-12 06:09] LABS: BASOPHILS % (AUTO) 0.6 % (0.0-2.0); EOSINOPHILS % (AUTO) 2.3 % (1.0-6.0); HEMATOCRIT 39.8 % (41-53); HEMOGLOBIN 13.1 g/dL (13.5-17.5); LYMPHOCYTES # (AUTO) 1.6 K/uL (1.0-4.8); LYMPHOCYTES % (AUTO) 21.8 % (22.0-44.0); MEAN CORPUSCULAR HEMOGLOBIN 28.6 pg (26.0-34.0); MEAN CORPUSCULAR VOLUME 87 fL (80-100); MONOCYTES # (AUTO) 0.4 K/uL (0.1-1.0); MONOCYTES % (AUTO) 5.5 % (2.0-9.0); NEUTROPHILS # (AUTO) 5.2 K/uL (1.8-7.7); NEUTROPHILS % (AUTO) 69.8 % (40.0-70.0); PLATELET COUNT (AUTO) 202 K/uL (150-450); RED BLOOD CELL COUNT(AUTO) 4.58 MIL/uL (4.50-5.90); RED CELL DISTRIBUTION WIDTH 15.2 % (11.5-14.5)
[2022-04-12] MEDS: ACETAMINOPHEN 325 MG TABLET PO PRN ×2 (06:09→20:02)
[2022-04-12 06:25] LABS: ANION GAP 9 mmol/L (8-16); CALCIUM, TOTAL 9.4 mg/dL (8.8-10.5); CARBON DIOXIDE 31 mmol/L (22-29); CHLORIDE 100 mmol/L (98-107); CREATININE 1.14 mg/dL (0.60-1.30); GLUCOSE,RANDOM 112 mg/dL (70-110); POTASSIUM 3.7 mmol/L (3.5-5.1); SODIUM SERUM 140 mmol/L (136-145); UREA NITROGEN, BLOOD 15 mg/dL (7-18)
[2022-04-12 06:27] LABS: GLOMERULAR FILTR. RATE CALC > 60 mL/min (>60)
[2022-04-12 07:22] VITALS: BP 112/65
[2022-04-12] MEDS: POTASSIUM CHLORIDE 10 MEQ ER TABLET PO SCH (08:33)
[2022-04-12] MEDS: GABAPENTIN 300 MG CAPSULE PO SCH ×3 (08:33→19:59)
[2022-04-12] MEDS: DOCUSATE SODIUM 100 MG CAPSULE PO SCH ×2 (08:34→19:59)
[2022-04-12] MEDS: AMIODARONE HCL 200 MG TABLET PO SCH ×2 (08:34→19:59)
[2022-04-12] MEDS: BUMETANIDE 0.25 MG/ML 4 ML VIAL IVP SCH ×3 (08:34→23:31)
[2022-04-12] MEDS: PANTOPRAZOLE SODIUM 40 MG DR TABLET PO SCH (08:34)
[2022-04-12] MEDS: LISINOPRIL 5 MG TABLET PO SCH (08:34)
[2022-04-12] MEDS: APIXABAN 5 MG TABLET PO SCH ×2 (08:34→19:59)
[2022-04-12 10:22] LABS: CHOL/HDL RATIO 5.2 (4.2-7.3); CHOLESTEROL 170 mg/dL (131-200); HDL CHOLESTEROL 33 mg/dL (40-60); LDL CHOL (CALC.) 99 mg/dL (0-130); TRIGLYCERIDES 189 mg/dL (15-150)
[2022-04-12 11:44] VITALS: BP 110/64
[2022-04-12 15:39] VITALS: BP 106/47
[2022-04-12] MEDS: ATORVASTATIN CALCIUM 10 MG TABLET PO SCH (19:59)
[2022-04-13] MEDS: LEVOTHYROXINE SODIUM 75 MCG TABLET PO SCH (06:24)
[2022-04-13 08:05] VITALS: BP 131/83
[2022-04-13] MEDS: BUMETANIDE 0.25 MG/ML 4 ML VIAL IVP SCH ×3 (08:15→23:27)
[2022-04-13] MEDS: AMIODARONE HCL 200 MG TABLET PO SCH ×2 (08:16→21:02)
[2022-04-13] MEDS: LISINOPRIL 5 MG TABLET PO SCH (08:16)
[2022-04-13] MEDS: POTASSIUM CHLORIDE 10 MEQ ER TABLET PO SCH (08:16)
[2022-04-13] MEDS: APIXABAN 5 MG TABLET PO SCH ×2 (08:16→21:02)
[2022-04-13] MEDS: GABAPENTIN 300 MG CAPSULE PO SCH ×3 (08:16→21:02)
[2022-04-13] MEDS: DOCUSATE SODIUM 100 MG CAPSULE PO SCH ×2 (08:16→21:00)
[2022-04-13] MEDS: ACETAMINOPHEN 325 MG TABLET PO PRN ×2 (08:30→21:06)
[2022-04-13] MEDS: PANTOPRAZOLE SODIUM 40 MG DR TABLET PO SCH (09:26)
[2022-04-13 11:04] VITALS: BP 120/77
[2022-04-13 11:31] LABS: BASOPHILS % (AUTO) 1.1 % (0.0-2.0); EOSINOPHILS % (AUTO) 1.6 % (1.0-6.0); HEMATOCRIT 40.8 % (41-53); HEMOGLOBIN 13.3 g/dL (13.5-17.5); LYMPHOCYTES # (AUTO) 1.8 K/uL (1.0-4.8); LYMPHOCYTES % (AUTO) 20.3 % (22.0-44.0); MEAN CORPUSCULAR HEMOGLOBIN 28.8 pg (26.0-34.0); MEAN CORPUSCULAR HGB CONC 32.7 G/dL (31.0-37.0); MEAN CORPUSCULAR VOLUME 88 fL (80-100); MONOCYTES # (AUTO) 0.7 K/uL (0.1-1.0); MONOCYTES % (AUTO) 7.5 % (2.0-9.0); NEUTROPHILS # (AUTO) 6.2 K/uL (1.8-7.7); NEUTROPHILS % (AUTO) 69.5 % (40.0-70.0); PLATELET COUNT (AUTO) 201 K/uL (150-450); RED BLOOD CELL COUNT(AUTO) 4.63 MIL/uL (4.50-5.90); RED CELL DISTRIBUTION WIDTH 14.8 % (11.5-14.5)
[2022-04-13 12:12] LABS: ANION GAP 8 mmol/L (8-16); CARBON DIOXIDE 29 mmol/L (22-29); CHLORIDE 97 mmol/L (98-107); CREATININE 1.19 mg/dL (0.60-1.30); GLUCOSE,RANDOM 129 mg/dL (70-110); POTASSIUM 3.8 mmol/L (3.5-5.1); SODIUM SERUM 134 mmol/L (136-145); UREA NITROGEN, BLOOD 21 mg/dL (7-18)
[2022-04-13 12:13] LABS: CALCIUM, TOTAL 9.3 mg/dL (8.8-10.5)
[2022-04-13 12:14] LABS: GLOMERULAR FILTR. RATE CALC > 60 mL/min (>60)
[2022-04-13 15:08] VITALS: BP 116/75
[2022-04-13 20:01] VITALS: BP 95/55
[2022-04-13] MEDS: ATORVASTATIN CALCIUM 10 MG TABLET PO SCH (21:02)
[2022-04-14 00:17] VITALS: BP 129/68
[2022-04-14 04:37] VITALS: BP 129/70
[2022-04-14] MEDS: LEVOTHYROXINE SODIUM 75 MCG TABLET PO SCH (06:48)
[2022-04-14 07:52] VITALS: BP 135/67
[2022-04-14] MEDS: GABAPENTIN 300 MG CAPSULE PO SCH ×3 (08:47→20:17)
[2022-04-14] MEDS: PANTOPRAZOLE SODIUM 40 MG DR TABLET PO SCH (08:47)
[2022-04-14] MEDS: LISINOPRIL 5 MG TABLET PO SCH (08:47)
[2022-04-14] MEDS: APIXABAN 5 MG TABLET PO SCH ×2 (08:47→20:16)
[2022-04-14] MEDS: DOCUSATE SODIUM 100 MG CAPSULE PO SCH ×2 (08:47→21:00)
[2022-04-14] MEDS: AMIODARONE HCL 200 MG TABLET PO SCH ×2 (08:48→20:17)
[2022-04-14] MEDS: BUMETANIDE 0.25 MG/ML 4 ML VIAL IVP SCH ×2 (08:48→16:55)
[2022-04-14] MEDS: POTASSIUM CHLORIDE 10 MEQ ER TABLET PO SCH (08:59)
[2022-04-14] MEDS: ACETAMINOPHEN 325 MG TABLET PO PRN ×2 (08:59→17:02)
[2022-04-14] MEDS ORDERED: ACET-2247 PO (09:08)
[2022-04-14 12:00] VITALS: BP 126/66
[2022-04-14] MEDS: ATORVASTATIN CALCIUM 10 MG TABLET PO SCH (20:17)
[2022-04-14 20:35] VITALS: BP 104/74
[2022-04-15] MEDS: BUMETANIDE 0.25 MG/ML 4 ML VIAL IVP SCH (00:19)
[2022-04-15] MEDS: ACETAMINOPHEN 325 MG TABLET PO PRN ×4 (00:28→20:16)
[2022-04-15 00:39] VITALS: BP 106/57
[2022-04-15 05:45] VITALS: BP 107/59
[2022-04-15] MEDS: LEVOTHYROXINE SODIUM 75 MCG TABLET PO SCH (06:34)
[2022-04-15 07:43] VITALS: BP 104/56
[2022-04-15] MEDS: DOCUSATE SODIUM 100 MG CAPSULE PO SCH ×2 (08:59→20:10)
[2022-04-15] MEDS: POTASSIUM CHLORIDE 10 MEQ ER TABLET PO SCH (08:59)
[2022-04-15] MEDS: GABAPENTIN 300 MG CAPSULE PO SCH ×3 (09:01→22:52)
[2022-04-15] MEDS: PANTOPRAZOLE SODIUM 40 MG DR TABLET PO SCH (09:01)
[2022-04-15] MEDS: LISINOPRIL 5 MG TABLET PO SCH (09:08)
[2022-04-15 10:13] VITALS: BP 108/56
[2022-04-15] MEDS: AMIODARONE HCL 200 MG TABLET PO SCH ×2 (10:19→20:10)
[2022-04-15] MEDS: APIXABAN 5 MG TABLET PO SCH ×2 (10:20→20:10)
[2022-04-15 19:53] VITALS: BP 120/59
[2022-04-15] MEDS: ATORVASTATIN CALCIUM 10 MG TABLET PO SCH (20:10)
== END 2022-04-15 23:35 | DRG 291 ==
LOC: EMS 08:01 → 5S 04-11 06:39 → 6S 04-15 07:45
PROVIDERS: ADMIT Internal Medicine; ATTEND Internal Medicine
DX: I11.0 Hypertensive heart disease with heart failure (principal); I50.23 Acute on chronic systolic (congestive) heart failure; Z68.43 Body mass index [BMI] 50.0-59.9, adult; E66.01 Morbid (severe) obesity due to excess calories; I48.91 Unspecified atrial fibrillation; Z20.822 Contact with and (suspected) exposure to COVID-19; K21.9 Gastro-esophageal reflux disease without esophagitis; E03.9 Hypothyroidism, unspecified; Z79.899 Other long term (current) drug therapy; Z88.5 Allergy status to narcotic agent
CPT/HCPCS: 71045; 80048; 80053; 80061; 81003; 82550; 83880; 84484; 85025; 85379; 87081; 93005; 93970; 99285; J2405; J3490; 36415-L1; 36415-TC

== ENCOUNTER 2022-05-19 21:13 | Emergency (ER) | payer OTHER ==
[~2022-05-19] VITALS: Ht 190.5 cm; Wt 181.8 kg
[~2022-05-19 21:13] MED LIST changes: +ACET-2247 PO; -ACET-66 PO; -ASPI-1450 PO; +OMEP20 PO
[2022-05-19] MEDS ORDERED: BUME1TAB34 PO ×2 (22:03→22:04)
[2022-05-19] MEDS ORDERED: APIX5TAB PO (22:05)
[2022-05-19] MEDS ORDERED: SPIR-37 PO (22:06)
[2022-05-19] MEDS ORDERED: ASPI-1450 PO (22:07)
[2022-05-19] MEDS ORDERED: BUMETANIDE 0.25 MG/ML 4 ML VIAL IVP ONE (22:30)
[2022-05-19 22:36] LABS: EOSINOPHILS % (AUTO) 1.2 % (1.0-6.0); HEMATOCRIT 40.4 % (41-53); HEMOGLOBIN 13.1 g/dL (13.5-17.5); LYMPHOCYTES # (AUTO) 1.9 K/uL (1.0-4.8); LYMPHOCYTES % (AUTO) 26.4 % (22.0-44.0); MEAN CORPUSCULAR HEMOGLOBIN 28.2 pg (26.0-34.0); MEAN CORPUSCULAR HGB CONC 32.3 G/dL (31.0-37.0); MEAN CORPUSCULAR VOLUME 87 fL (80-100); MONOCYTES # (AUTO) 0.5 K/uL (0.1-1.0); MONOCYTES % (AUTO) 7.6 % (2.0-9.0); NEUTROPHILS # (AUTO) 4.6 K/uL (1.8-7.7); NEUTROPHILS % (AUTO) 63.8 % (40.0-70.0); PLATELET COUNT (AUTO) 189 K/uL (150-450); RED BLOOD CELL COUNT(AUTO) 4.63 MIL/uL (4.50-5.90); RED CELL DISTRIBUTION WIDTH 15.1 % (11.5-14.5)
[2022-05-19 22:39] LABS: CALCIUM, TOTAL 9.2 mg/dL (8.8-10.5); CREATININE 1.26 mg/dL (0.60-1.30); POTASSIUM 3.8 mmol/L (3.5-5.1)
[2022-05-19 22:45] LABS: INR 1.1 (0.9-1.1); PROTHROMBIN TIME 11.3 SEC (9.4-11.6)
[2022-05-19 22:46] LABS: ALBUMIN 4.1 g/dL (3.4-5.0); BILIRUBIN,TOTAL 0.4 mg/dL (0.1-1.0); MAGNESIUM 2.3 mg/dL (1.80-2.40); PHOSPHORUS 3.4 mg/dL (2.5-4.9); TOTAL PROTEIN, SERUM 7.7 g/dL (6.4-8.2)
[2022-05-19 23:28] LABS: COVID AG,FIA SOURCE NASOPHARYNGEAL
[2022-05-19 23:52] LABS: INFLUENZA TYPE A NEGATIVE FOR TYPE A (NEGATIVE); INFLUENZA TYPE B NEGATIVE FOR TYPE B (NEGATIVE)
[2022-05-20] MEDS ORDERED: ONDANSETRON HCL 4 MG/2 ML VIAL IVP ONE
[2022-05-20] MEDS ORDERED: HEPARIN SODIUM,PORCINE 5,000 UNITS/ML VIAL SQ SCH
[2022-05-20] MEDS ORDERED: ONDANSETRON HCL 4 MG/2 ML VIAL IVP PRN
[2022-05-20] MEDS ORDERED: ACETAMINOPHEN 325 MG TABLET PO PRN
[2022-05-20] MEDS ORDERED: METOLAZONE 5 MG TABLET PO ONE (00:30)
[2022-05-20] MEDS: ACETAMINOPHEN 325 MG TABLET PO PRN ×2 (00:31→04:02)
[2022-05-20 00:58] VITALS: BP 120/49
[2022-05-20] MEDS ORDERED: LEVOTHYROXINE SODIUM 75 MCG TABLET PO SCH (06:30)
[2022-05-20] MEDS ORDERED: POTASSIUM CHLORIDE 10 MEQ ER TABLET PO SCH (09:00)
[2022-05-20] MEDS ORDERED: APIXABAN 5 MG TABLET PO SCH (09:00)
[2022-05-20] MEDS ORDERED: LISINOPRIL 5 MG TABLET PO SCH (09:00)
[2022-05-20] MEDS ORDERED: OMEPRAZOLE 20 MG CAPSULE PO SCH (09:00)
[2022-05-20] MEDS ORDERED: AMIODARONE HCL 200 MG TABLET PO SCH (09:00)
[2022-05-20] MEDS ORDERED: GABAPENTIN 300 MG CAPSULE PO SCH (09:00)
[2022-05-20] MEDS ORDERED: ASPIRIN 81 MG CHEWABLE TABLET PO SCH (09:00)
[2022-05-20] MEDS ORDERED: SPIRONOLACTONE 25 MG TABLET PO SCH (09:00)
[2022-05-20] MEDS ORDERED: BUMETANIDE 0.25 MG/ML 4 ML VIAL IVP SCH (09:00)
[2022-05-27] MEDS ORDERED: METOLAZONE 5 MG TABLET PO SCH (09:00)
== END 2022-05-20 05:20 | disposition admitted as inpatient to this hospital (09) ==
LOC: EMS 21:15
DX: I11.0 Hypertensive heart disease with heart failure (principal); I50.9 Heart failure, unspecified; R60.0 Localized edema; R06.01 Orthopnea; I48.91 Unspecified atrial fibrillation; Z88.5 Allergy status to narcotic agent; Z88.8 Allergy status to other drugs, medicaments and biological substances; Z20.822 Contact with and (suspected) exposure to COVID-19
CPT/HCPCS: 99291; 96374; 71045; 87426; 80053; 82550; 83735; 83880; 84100; 84484; 85025; 85610; 85730; 87804; 36415; 93005; 96375; 96372; J3490; J2405; J1644

== ENCOUNTER 2023-01-02 13:15 | Inpatient (IN) | payer OTHER ==
[~2023-01-02] VITALS: Ht 188 cm; Wt 190.0 kg
[~2023-01-02 13:15] MED LIST changes: +ASPI-1450 PO; +SPIR-37 PO
[2023-01-02] MEDS ORDERED: VANCOMYCIN HCL 1.25 GM in DEXTROSE 5%-WATER 250 ML IV ONE (16:45)
[2023-01-02] MEDS ORDERED: ACETAMINOPHEN 500 MG TABLET PO ONE (17:00)
[2023-01-02] MEDS ORDERED: BACITRACIN 0.9 GM PACKET OINTMENT TP ONE (17:00)
[2023-01-02 17:42] LABS: BASOPHILS % (AUTO) 1.3 % (0.0-2.0); EOSINOPHILS % (AUTO) 0.5 % (1.0-6.0); HEMATOCRIT 38.2 % (41-53); HEMOGLOBIN 12.8 g/dL (13.5-17.5); LYMPHOCYTES # (AUTO) 1.1 K/uL (1.0-4.8); LYMPHOCYTES % (AUTO) 11.8 % (22.0-44.0); MEAN CORPUSCULAR HEMOGLOBIN 30.4 pg (26.0-34.0); MEAN CORPUSCULAR HGB CONC 33.6 G/dL (31.0-37.0); MEAN CORPUSCULAR VOLUME 91 fL (80-100); MONOCYTES # (AUTO) 0.6 K/uL (0.1-1.0); MONOCYTES % (AUTO) 6.8 % (2.0-9.0); NEUTROPHILS # (AUTO) 7.1 K/uL (1.8-7.7); NEUTROPHILS % (AUTO) 79.6 % (40.0-70.0); PLATELET COUNT (AUTO) 187 K/uL (150-450); RED BLOOD CELL COUNT(AUTO) 4.22 MIL/uL (4.50-5.90); RED CELL DISTRIBUTION WIDTH 14.4 % (11.5-14.5)
[2023-01-02 17:57] LABS: LACTIC ACID 1.1 mmol/L (0.4-2.0)
[2023-01-02 18:03] LABS: CALCIUM, TOTAL 8.9 mg/dL (8.8-10.5); CREATININE 1.41 mg/dL (0.60-1.30); POTASSIUM 3.9 mmol/L (3.5-5.1)
[2023-01-02 18:07] LABS: ALBUMIN 3.9 g/dL (3.4-5.0); BILIRUBIN,TOTAL 0.4 mg/dL (0.1-1.0); TOTAL PROTEIN, SERUM 7.6 g/dL (6.4-8.2)
[2023-01-02] MEDS ORDERED: ONDANSETRON HCL 4 MG/2 ML VIAL IVP PRN (19:00)
[2023-01-02] MEDS ORDERED: ACETAMINOPHEN 325 MG TABLET PO PRN (19:00)
[2023-01-02] MEDS: DOCUSATE SODIUM 100 MG CAPSULE PO SCH (21:00)
[2023-01-03 00:57] VITALS: BP 122/69; PULSE 69; RESP 20; TEMP 98.1
[2023-01-03] MEDS: AMIODARONE HCL 200 MG TABLET PO SCH ×3 (02:41→20:07)
[2023-01-03] MEDS: BUMETANIDE 0.25 MG/ML 4 ML VIAL IVP SCH ×3 (02:41→20:07)
[2023-01-03] MEDS: GABAPENTIN 300 MG CAPSULE PO SCH ×4 (02:42→20:07)
[2023-01-03] MEDS: APIXABAN 5 MG TABLET PO SCH ×3 (02:42→20:07)
[2023-01-03] MEDS: ACETAMINOPHEN 325 MG TABLET PO PRN (02:48)
[2023-01-03 05:00] VITALS: BP 122/68; PULSE 82; RESP 20; TEMP 98.9
[2023-01-03] MEDS ORDERED: KETOROLAC TROMETHAMINE 15 MG/ML VIAL IVP ONE (05:45)
[2023-01-03] MEDS: LEVOTHYROXINE SODIUM 75 MCG TABLET PO SCH (05:57)
[2023-01-03 07:24] LABS: CALCIUM, TOTAL 8.4 mg/dL (8.8-10.5); CREATININE 1.29 mg/dL (0.60-1.30); POTASSIUM 3.8 mmol/L (3.5-5.1)
[2023-01-03 08:07] LABS: MAGNESIUM 2.4 mg/dL (1.80-2.40)
[2023-01-03 08:24] LABS: CREATININE,URINE RANDOM 71.9 mg/dL (30.0-125.0)
[2023-01-03 08:47] VITALS: BP 111/61; PULSE 54; RESP 18; TEMP 97.4
[2023-01-03] MEDS: VANCOMYCIN HCL 1.25 GM in DEXTROSE 5%-WATER 250 ML IV SCH ×2 (09:07→20:06)
[2023-01-03] MEDS: SPIRONOLACTONE 25 MG TABLET PO SCH (09:15)
[2023-01-03] MEDS: POTASSIUM CHLORIDE 10 MEQ ER TABLET PO SCH (09:15)
[2023-01-03] MEDS: OMEPRAZOLE 20 MG CAPSULE PO SCH (09:15)
[2023-01-03] MEDS: DOCUSATE SODIUM 100 MG CAPSULE PO SCH ×2 (09:16→20:07)
[2023-01-03] MEDS: ASPIRIN 81 MG CHEWABLE TABLET PO SCH (09:16)
[2023-01-03 20:28] VITALS: BP 131/72; PULSE 60; RESP 20; TEMP 97.8
[2023-01-03 23:00] VITALS: PULSE 61; RESP 17; O2SAT 98
[2023-01-04 02:00] VITALS: PULSE 62; RESP 21; O2SAT 97
[2023-01-04 04:30] VITALS: BP 115/61; PULSE 61; RESP 20; TEMP 98.3
[2023-01-04] MEDS: LEVOTHYROXINE SODIUM 75 MCG TABLET PO SCH (05:35)
[2023-01-04] MEDS: ACETAMINOPHEN 325 MG TABLET PO PRN (05:37)
[2023-01-04 06:42] LABS: CALCIUM, TOTAL 8.8 mg/dL (8.8-10.5); CREATININE 1.24 mg/dL (0.60-1.30); VANCOMYCIN,RANDOM 14.7 mcg/mL (25.0-50.0)
[2023-01-04 07:38] VITALS: BP 124/64; PULSE 64; RESP 20; TEMP 98.4
[2023-01-04] MEDS: BUMETANIDE 0.25 MG/ML 4 ML VIAL IVP SCH (08:44)
[2023-01-04] MEDS: OMEPRAZOLE 20 MG CAPSULE PO SCH (08:44)
[2023-01-04] MEDS: VANCOMYCIN HCL 1.25 GM in DEXTROSE 5%-WATER 250 ML IV SCH (08:44)
[2023-01-04] MEDS: DOCUSATE SODIUM 100 MG CAPSULE PO SCH (08:45)
[2023-01-04] MEDS: POTASSIUM CHLORIDE 10 MEQ ER TABLET PO SCH (08:45)
[2023-01-04] MEDS: APIXABAN 5 MG TABLET PO SCH (08:45)
[2023-01-04] MEDS: GABAPENTIN 300 MG CAPSULE PO SCH (08:45)
[2023-01-04] MEDS: AMIODARONE HCL 200 MG TABLET PO SCH (08:45)
[2023-01-04] MEDS: ASPIRIN 81 MG CHEWABLE TABLET PO SCH (08:45)
[2023-01-04] MEDS: SPIRONOLACTONE 25 MG TABLET PO SCH (08:45)
[2023-01-04 09:24] LABS: THYROID STIMULATING HORMONE 7.99 uIU/mL (0.36-3.74)
[2023-01-04] MEDS ORDERED: CLIN300C58 PO (09:45)
[2023-01-04] MEDS ORDERED: DOCU-385 PO (09:46)
[2023-01-04 15:02] VITALS: BP 122/68; PULSE 68; RESP 20; TEMP 98
[2023-01-04] MEDS ORDERED: CLINDAMYCIN HCL 300 MG CAPSULE PO SCH (16:00)
== END 2023-01-04 15:25 | DRG 291 ==
LOC: EMS 13:47 → 6N 20:00
PROVIDERS: ADMIT Internal Medicine; ATTEND Internal Medicine
DX: I11.0 Hypertensive heart disease with heart failure (principal); I50.33 Acute on chronic diastolic (congestive) heart failure; N17.9 Acute kidney failure, unspecified; L03.115 Cellulitis of right lower limb; Z68.43 Body mass index [BMI] 50.0-59.9, adult; E44.0 Moderate protein-calorie malnutrition; L03.116 Cellulitis of left lower limb; G47.33 Obstructive sleep apnea (adult) (pediatric); E66.01 Morbid (severe) obesity due to excess calories; I48.91 Unspecified atrial fibrillation; I89.0 Lymphedema, not elsewhere classified; Z88.5 Allergy status to narcotic agent; Z88.4 Allergy status to anesthetic agent; Z79.899 Other long term (current) drug therapy; Z79.82 Long term (current) use of aspirin
CPT/HCPCS: 71045; 80048; 80053; 80202; 82570; 83605; 83735; 83930; 83935; 84300; 84443; 85025; 87040; 94660; 97163; 99285; J1885; J3370; J3490; J7060; 36415-L1; 36415-TC

== ENCOUNTER 2023-05-12 15:07 | Inpatient (IN) | payer OTHER ==
[~2023-05-12] VITALS: Ht 190.5 cm; Wt 194.1 kg
[~2023-05-12 15:07] MED LIST changes: +CLIN300C58 PO; +DOCU-385 PO
[2023-05-12] MEDS ORDERED: KETOROLAC TROMETHAMINE 30 MG/ML VIAL IVP ONE (16:15)
[2023-05-12] MEDS ORDERED: VANCOMYCIN HCL 1.25 GM in DEXTROSE 5%-WATER 250 ML IV ONE (16:15)
[2023-05-12] MEDS ORDERED: ACETAMINOPHEN 500 MG TABLET PO ONE (16:15)
[2023-05-12 16:45] LABS: EOSINOPHILS % (AUTO) 1.1 % (1.0-6.0); HEMATOCRIT 37.4 % (41-53); HEMOGLOBIN 12.4 g/dL (13.5-17.5); LYMPHOCYTES % (AUTO) 13.6 % (22.0-44.0); MEAN CORPUSCULAR HEMOGLOBIN 29.3 pg (26.0-34.0); MEAN CORPUSCULAR HGB CONC 33.2 G/dL (31.0-37.0); MEAN CORPUSCULAR VOLUME 88 fL (80-100); MONOCYTES # (AUTO) 0.7 K/uL (0.1-1.0); MONOCYTES % (AUTO) 9.1 % (2.0-9.0); NEUTROPHILS # (AUTO) 5.5 K/uL (1.8-7.7); NEUTROPHILS % (AUTO) 75.2 % (40.0-70.0); PLATELET COUNT (AUTO) 208 K/uL (150-450); RED BLOOD CELL COUNT(AUTO) 4.23 MIL/uL (4.50-5.90); RED CELL DISTRIBUTION WIDTH 14.6 % (11.5-14.5); WHITE BLOOD COUNT (AUTO) 7.3 K/uL (4.5-11.0)
[2023-05-12 16:58] LABS: ANION GAP 10 mmol/L (8-16); CALCIUM, TOTAL 8.8 mg/dL (8.8-10.5); CARBON DIOXIDE 30 mmol/L (22-29); CHLORIDE 101 mmol/L (98-107); GLOMERULAR FILTR. RATE CALC > 60 mL/min (>60); GLUCOSE,RANDOM 111 mg/dL (70-110); POTASSIUM 3.9 mmol/L (3.5-5.1); SODIUM SERUM 141 mmol/L (136-145); UREA NITROGEN, BLOOD 15 mg/dL (7-18)
[2023-05-12 17:05] LABS: TROPONIN I-HIGH SENSITIVITY 7 ng/L (<76)
[2023-05-12 17:22] LABS: ALANINE AMINOTRANSFERASE 43 U/L (12-78); ALKALINE PHOSPHATASE 78 U/L (46-116); ASPARTATE AMINOTRANSFERASE 31 U/L (15-37); BILIRUBIN,TOTAL 0.6 mg/dL (0.1-1.0); CREATINE KINASE, TOTAL ONLY 77 U/L (39-308); TOTAL PROTEIN, SERUM 8.8 g/dL (6.4-8.2)
[2023-05-12 17:27] LABS: B-TYPE NATRIURETIC PEPTIDE 76 pg/mL (0-100)
[2023-05-12] MEDS ORDERED: ALBUTEROL SULFATE 2.5 MG/0.5 ML NEB SOLUTION NEB PRN (17:45)
[2023-05-12] MEDS ORDERED: ONDANSETRON HCL 4 MG/2 ML VIAL IVP PRN (17:45)
[2023-05-12] MEDS ORDERED: ACETAMINOPHEN 325 MG TABLET PO PRN (17:45)
[2023-05-12] MEDS ORDERED: MAGNESIUM HYDROXIDE SUSPENSION 30 ML UDCUP PO PRN (17:45)
[2023-05-12] MEDS: CefTRIAXone 1 GM/DEXTROSE 50 ML IV SCH (18:03)
[2023-05-12 18:14] LABS: COVID AG,FIA SOURCE NASAL SWAB
[2023-05-12 18:21] LABS: APPEARANCE,URINE CLEAR (CLEAR); BILIRUBIN,URINE NEGATIVE (NEGATIVE); COLOR,URINE COLORLESS (YELLOW); GLUCOSE, URINE (UA) NEGATIVE (NEGATIVE); KETONES,URINE NEGATIVE (NEGATIVE); LEUKOCYTE ESTERASE ,URINE NEGATIVE (NEGATIVE); NITRATE,URINE NEGATIVE (NEGATIVE); OCCULT BLOOD,URINE NEGATIVE (NEGATIVE); PROTEIN,URINE NEGATIVE (NEGATIVE); SPECIFIC GRAVITIY, URINE 1.007 (1.003-1.030); UROBILINOGEN,URINE <=1.0 mg/dL (<=1.0)
[2023-05-12 18:42] LABS: SARS-COV2 (COVID) ANTIGEN,FIA Negative (Negative)
[2023-05-12] MEDS ORDERED: VANCOMYCIN HCL 750 MG in DEXTROSE 5%-WATER 250 ML IV ONE (21:00)
[2023-05-12 21:04] VITALS: BP 121/60; PULSE 58; RESP 18; TEMP 98.1
[2023-05-12] MEDS: AMIODARONE HCL 200 MG TABLET PO SCH (21:36)
[2023-05-12] MEDS: APIXABAN 5 MG TABLET PO SCH (21:36)
[2023-05-13] MEDS ORDERED: PNEUMOCOCCAL VACCINE POLYVALENT 0.5 ML SYRINGE [PPSV23] IM. ONE (02:45)
[2023-05-13 05:29] VITALS: BP 122/68; PULSE 63; RESP 18; TEMP 98.5
[2023-05-13] MEDS ORDERED: DiphenhydrAMINE HCL 25 MG CAPSULE PO PRN (05:45)
[2023-05-13] MEDS: TraMADol HCL 50 MG TABLET PO PRN ×3 (05:54→20:40)
[2023-05-13] MEDS: APIXABAN 5 MG TABLET PO SCH ×2 (08:13→20:39)
[2023-05-13] MEDS: BUMETANIDE 1 MG TABLET PO SCH (08:13)
[2023-05-13] MEDS: ASPIRIN 81 MG CHEWABLE TABLET PO SCH (08:13)
[2023-05-13] MEDS: AMIODARONE HCL 200 MG TABLET PO SCH ×2 (08:15→20:40)
[2023-05-13] MEDS: FAMOTIDINE 20 MG TABLET PO SCH (08:15)
[2023-05-13] MEDS: VANCOMYCIN HCL 1.5 GM in DEXTROSE 5%-WATER 250 ML IV SCH ×2 (08:16→19:26)
[2023-05-13 08:41] LABS: CALCIUM, TOTAL 8.6 mg/dL (8.8-10.5); CREATININE 1.23 mg/dL (0.60-1.30); POTASSIUM 3.6 mmol/L (3.5-5.1)
[2023-05-13 08:43] VITALS: BP 122/67; PULSE 62; RESP 18; TEMP 98.1
[2023-05-13 15:46] VITALS: BP 141/64; PULSE 63; RESP 18; TEMP 97.7
[2023-05-13] MEDS: CefTRIAXone 1 GM/DEXTROSE 50 ML IV SCH (17:02)
[2023-05-13 20:15] VITALS: BP 107/54; PULSE 57; RESP 18; TEMP 98.2
[2023-05-13 21:40] VITALS: PULSE 60; RESP 19; O2SAT 97
[2023-05-14 04:10] VITALS: BP 119/66; PULSE 59; RESP 18; TEMP 98.4
[2023-05-14] MEDS: VANCOMYCIN HCL 1.5 GM in DEXTROSE 5%-WATER 250 ML IV SCH ×2 (07:35→19:59)
[2023-05-14] MEDS: TraMADol HCL 50 MG TABLET PO PRN ×2 (07:40→15:37)
[2023-05-14 07:59] LABS: ANION GAP 7 mmol/L (8-16); CALCIUM, TOTAL 8.4 mg/dL (8.8-10.5); CARBON DIOXIDE 29 mmol/L (22-29); CHLORIDE 105 mmol/L (98-107); CREATININE 1.14 mg/dL (0.60-1.30); GLOMERULAR FILTR. RATE CALC > 60 mL/min (>60); GLUCOSE,RANDOM 92 mg/dL (70-110); POTASSIUM 3.7 mmol/L (3.5-5.1); SODIUM SERUM 141 mmol/L (136-145); UREA NITROGEN, BLOOD 14 mg/dL (7-18); VANCOMYCIN,RANDOM 12.7 mcg/mL (25.0-50.0)
[2023-05-14 08:13] VITALS: BP 119/58; PULSE 57; RESP 19; TEMP 98.3
[2023-05-14] MEDS: ASPIRIN 81 MG CHEWABLE TABLET PO SCH (08:34)
[2023-05-14] MEDS: AMIODARONE HCL 200 MG TABLET PO SCH (08:34)
[2023-05-14] MEDS: BUMETANIDE 1 MG TABLET PO SCH (08:34)
[2023-05-14] MEDS: FAMOTIDINE 20 MG TABLET PO SCH (08:34)
[2023-05-14] MEDS: APIXABAN 5 MG TABLET PO SCH ×2 (08:34→19:59)
[2023-05-14] MEDS: CefTRIAXone 1 GM/DEXTROSE 50 ML IV SCH (17:11)
[2023-05-14 20:46] VITALS: BP 121/61; PULSE 54; RESP 20; TEMP 98.7
[2023-05-15 04:44] VITALS: BP 133/71; PULSE 60; RESP 20; TEMP 98.3
[2023-05-15 07:29] LABS: ANION GAP 8 mmol/L (8-16); CALCIUM, TOTAL 8.4 mg/dL (8.8-10.5); CARBON DIOXIDE 27 mmol/L (22-29); CHLORIDE 104 mmol/L (98-107); CREATININE 1.07 mg/dL (0.60-1.30); GLOMERULAR FILTR. RATE CALC > 60 mL/min (>60); GLUCOSE,RANDOM 95 mg/dL (70-110); POTASSIUM 3.6 mmol/L (3.5-5.1); SODIUM SERUM 139 mmol/L (136-145); UREA NITROGEN, BLOOD 11 mg/dL (7-18)
[2023-05-15 08:04] VITALS: BP 130/72; PULSE 64; RESP 20; TEMP 98
[2023-05-15] MEDS: VANCOMYCIN HCL 1.5 GM in DEXTROSE 5%-WATER 250 ML IV SCH ×2 (08:29→20:08)
[2023-05-15] MEDS: BUMETANIDE 1 MG TABLET PO SCH (08:30)
[2023-05-15] MEDS: APIXABAN 5 MG TABLET PO SCH ×2 (08:30→20:08)
[2023-05-15] MEDS: ASPIRIN 81 MG CHEWABLE TABLET PO SCH (08:30)
[2023-05-15] MEDS: FAMOTIDINE 20 MG TABLET PO SCH (08:30)
[2023-05-15] MEDS: MUPIROCIN CALCIUM 2% 22 GM OINTMENT TP SCH (11:31)
[2023-05-15 15:07] VITALS: BP 128/74; PULSE 68; RESP 20; TEMP 98.4
[2023-05-15] MEDS: TraMADol HCL 50 MG TABLET PO PRN (17:21)
[2023-05-15] MEDS: CefTRIAXone 1 GM/DEXTROSE 50 ML IV SCH (17:53)
[2023-05-15] MEDS ORDERED: SODIUM CHLORIDE 0.9% 500 ML IV ONE (18:02)
[2023-05-15 20:24] VITALS: BP 105/57; PULSE 61; RESP 18; TEMP 98.5
[2023-05-16] MEDS: TraMADol HCL 50 MG TABLET PO PRN ×3 (01:01→18:26)
[2023-05-16 04:53] VITALS: BP 122/62; PULSE 63; RESP 19; TEMP 97.9
[2023-05-16] MEDS: BUMETANIDE 1 MG TABLET PO SCH (08:32)
[2023-05-16] MEDS: ASPIRIN 81 MG CHEWABLE TABLET PO SCH (08:32)
[2023-05-16] MEDS: FAMOTIDINE 20 MG TABLET PO SCH (08:32)
[2023-05-16] MEDS: APIXABAN 5 MG TABLET PO SCH (08:32)
[2023-05-16] MEDS: MUPIROCIN CALCIUM 2% 22 GM OINTMENT TP SCH (08:34)
[2023-05-16 08:56] LABS: ANION GAP 6 mmol/L (8-16); CALCIUM, TOTAL 8.8 mg/dL (8.8-10.5); CARBON DIOXIDE 31 mmol/L (22-29); CHLORIDE 103 mmol/L (98-107); CREATININE 1.19 mg/dL (0.60-1.30); GLOMERULAR FILTR. RATE CALC > 60 mL/min (>60); GLUCOSE,RANDOM 103 mg/dL (70-110); POTASSIUM 4.1 mmol/L (3.5-5.1); SODIUM SERUM 140 mmol/L (136-145); UREA NITROGEN, BLOOD 13 mg/dL (7-18); VANCOMYCIN,RANDOM 14.4 mcg/mL (25.0-50.0)
[2023-05-16] MEDS: VANCOMYCIN HCL 1.5 GM in DEXTROSE 5%-WATER 250 ML IV SCH (09:10)
[2023-05-16] MEDS ORDERED: FAMO20 PO (14:50)
[2023-05-16] MEDS ORDERED: MULT-248 PO (14:51)
[2023-05-16] MEDS ORDERED: MUPI1OIN5 TP (14:52)
[2023-05-16] MEDS ORDERED: DOXY-354 PO (14:53)
[2023-05-16] MEDS: CefTRIAXone 1 GM/DEXTROSE 50 ML IV SCH (18:11)
[2023-05-17] MEDS ORDERED: MULTIVITAMINS WITH MINERALS, THERAPEUTIC TABLET PO SCH (09:00)
== END 2023-05-16 19:47 | DRG 603 ==
LOC: EDUNIT# 15:07 → EMS 15:11 → 6S 17:52
PROVIDERS: ADMIT Internal Medicine; ATTEND Internal Medicine
PROC: 5A09357 Assistance with Respiratory Ventilation, Less than 24 Consecutive Hours, Continuous Positive Airway Pressure (ICD-10-PCS; principal; 2023-05-13)
DX: L03.115 Cellulitis of right lower limb (principal); E66.2 Morbid (severe) obesity with alveolar hypoventilation; Z68.43 Body mass index [BMI] 50.0-59.9, adult; E44.0 Moderate protein-calorie malnutrition; R00.1 Bradycardia, unspecified; I89.0 Lymphedema, not elsewhere classified; Z20.822 Contact with and (suspected) exposure to COVID-19; I48.0 Paroxysmal atrial fibrillation; I50.9 Heart failure, unspecified; I11.0 Hypertensive heart disease with heart failure; Z88.5 Allergy status to narcotic agent; Z88.6 Allergy status to analgesic agent; Z88.4 Allergy status to anesthetic agent; Z79.899 Other long term (current) drug therapy
CPT/HCPCS: 71045; 80048; 80053; 80202; 81003; 82550; 83880; 84484; 85025; 87040; 93005; 97162; 97530; 99285; J0696; J1885; J2405; J3370; J7040; J7060; 36415-L1; 36415-TC

== ENCOUNTER 2023-10-28 14:45 | Emergency (ER) | payer OTHER ==
[~2023-10-28] VITALS: Ht 190.5 cm; Wt 190.9 kg
[~2023-10-28 14:45] MED LIST changes: -AMIO200T68 PO; +AMIO200T8 PO; -CLIN300C58 PO; +FAMO20 PO; -GABA-1181 PO; -LEVO75 PO; +LEVO750T68 PO; -LISI-892 PO; +MAGN-169 PO; +MULT-248 PO; -OMEP20 PO; +PANT-31 PO; -POTA-92 PO; -SPIR-37 PO
[2023-10-28 16:04] VITALS: TEMP 97.5
[2023-10-28] MEDS ORDERED: PREG75 PO (16:18)
[2023-10-28] MEDS ORDERED: ATOR10TA PO (16:18)
[2023-10-28] MEDS ORDERED: BUME1TAB34 PO (16:18)
[2023-10-28] MEDS ORDERED: LISI-892 PO (16:18)
[2023-10-28] MEDS ORDERED: AMIO200T68 PO (16:18)
[2023-10-28] MEDS ORDERED: OXCA300T70 PO (16:18)
[2023-10-28] MEDS ORDERED: LEVO150 PO (16:18)
[2023-10-28] MEDS ORDERED: ISOS30TA92 PO (16:18)
[2023-10-28] MEDS ORDERED: SERT-158 PO (16:18)
[2023-10-28] MEDS: PETROLATUM,WHITE 5 GM PACKET JELLY TP ONE (16:53)
[2023-10-28 17:19] VITALS: BP 152/86; PULSE 75; RESP 18
== END 2023-10-28 17:58 | disposition home or self-care (01) ==
LOC: EMS 14:46
DX: I87.2 Venous insufficiency (chronic) (peripheral) (principal); I11.0 Hypertensive heart disease with heart failure; I50.9 Heart failure, unspecified; I48.91 Unspecified atrial fibrillation; Z88.5 Allergy status to narcotic agent; Z88.6 Allergy status to analgesic agent
CPT/HCPCS: 99283

== ENCOUNTER 2023-12-08 17:22 | Emergency (ER) | payer OTHER ==
[~2023-12-08] VITALS: Ht 190.5 cm; Wt 197.7 kg
[~2023-12-08 17:22] MED LIST changes: +AMIO200T68 PO; -AMIO200T8 PO; -ASPI-1450 PO; +ATOR10TA PO; -BUME1TAB34 PO; +BUME1TAB50 PO; +ISOS30TA92 PO; +LEVO150 PO; -LEVO750T68 PO; +LISI-892 PO; +OXCA300T70 PO; +PREG75 PO; +SERT-158 PO
[2023-12-08 19:24] VITALS: BP 129/77; PULSE 63; RESP 20; TEMP 98.3
== END 2023-12-09 | disposition left against medical advice (07) ==
LOC: EMS 17:26
DX: I87.8 Other specified disorders of veins (principal); L03.116 Cellulitis of left lower limb; L03.115 Cellulitis of right lower limb; J45.909 Unspecified asthma, uncomplicated; F32.A Depression, unspecified; E03.9 Hypothyroidism, unspecified; I25.10 Atherosclerotic heart disease of native coronary artery without angina pectoris; I11.0 Hypertensive heart disease with heart failure; Z98.890 Other specified postprocedural states; Z88.6 Allergy status to analgesic agent; Z88.5 Allergy status to narcotic agent; Z88.8 Allergy status to other drugs, medicaments and biological substances
CPT/HCPCS: 99281; Z7502